=== PATIENT | male | born 1995 | race Caucasian/White ===

== ENCOUNTER → 2017-03-24 | Outpatient (CLI) | payer BC, OTHER ==
[~2017-03-24] MED LIST: ABL/5 PO; CETI10TA84 PO; GLYC1TAB18 PO; MELA3CAP PO; PRLSR20 PO
--- NOTE | 2017-03-24 16:47 | DIAGNOSTIC IMAGING REPORT ---
ABDOMEN AND PELVIS CT WITHOUT CONTRAST CT DOSE: 1542.86 mGy.cm HISTORY: N50.819 Testicular painR30.0 AreryjpU81.89 Testicular swelling TECHNIQUE: Multiaxial CT images of the abdomen and pelvis were performed without contrast. A dose lowering technique was utilized adhering to the principles of ALARA. COMPARISON STUDY: None. FINDINGS: The lung bases are clear. The unenhanced liver, spleen, gallbladder, adrenal glands, pancreas, and kidneys are unremarkable. The bladder is within normal limits. Suboptimal evaluation for bowel pathology due to the lack of intravenous and oral contrast. However, there is no definite bowel wall thickening or obstruction. Subcentimeter retroperitoneal lymph nodes do not meet CT criteria for pathologic involvement. Normal appendix. There are few enlarged ileocolic lymph nodes. Dominant ileocolic lymph node on image 242 measures 2.2 x 1.1 cm. There appears be minimal inflammatory change at the base of the penis. However, this is only partially visualized on this study IMPRESSION: 1. No bowel wall thickening or obstruction. 2. No renal or ureteral stones. No hydronephrosis. 3. Mild ileocolic lymphadenopathy which is nonspecific. 3 month abdomen and pelvis CT follow up is recommended to ensure stability/resolution. A neoplastic process could have a similar appearance but is considered less likely. 4. There appears be minimal inflammatory change at the base of the penis. However, this is only partially visualized on this study. Electronically signed by: Santo Franco M.D. 03/24/2017 4:46 PM Dictated Date/Time: 03/24/2017 4:35 PM
--- NOTE | 2017-03-24 17:00 | DIAGNOSTIC IMAGING REPORT ---
TESTICULAR ULTRASOUND HISTORY: N50.819 Testicular painN50.89 Testicular swelling COMPARISON: Abdomen and pelvis CT 03/24/2017. FINDINGS: Right testis: 4.9 cm. There are no intratesticular masses. Normal color flow. Trace slightly complex hydrocele demonstrating internal echoes. The epididymis is unremarkable. Left testis: 4.7 cm. There are no intratesticular masses. Normal color flow. Large hydrocele. The epididymis is unremarkable. Mild scrotal wall thickening. IMPRESSION: 1. Normal bilateral testes. 2. Large left hydrocele. 3. Trace slightly complex right hydrocele. 4. Mild scrotal wall thickening. Electronically signed by: Snato Franco M.D. 03/24/2017 4:58 PM Dictated Date/Time: 03/24/2017 4:57 PM
== END | disposition home or self-care (01) ==
LOC: C.CTS 15:33
PROVIDERS: ATTEND Urology
DX: N50.89 Other specified disorders of the male genital organs (principal); N50.819 Testicular pain, unspecified; R30.0 Dysuria

== ENCOUNTER → 2017-06-19 | Outpatient (CLI) | payer BC, OTHER ==
[~2017-06-19] MED LIST changes: +GLC/500 PO; -GLYC1TAB18 PO; +GLYC2TAB16 PO; +IBUP-1449 PO; +LAMO25TA PO
[2017-06-19 19:29] LABS: BLOOD UREA NITROGEN 15 mg/dl (7-18); BUN/CREATININE RATIO 14.3 (10-20); CREATININE 1.03 mg/dl (0.60-1.40)
== END | disposition home or self-care (01) ==
LOC: C.LAB 16:17
PROVIDERS: ATTEND Urology
DX: N50.819 Testicular pain, unspecified (principal)

== ENCOUNTER → 2017-06-23 | Outpatient (CLI) | payer BC ==
[~2017-06-23] MED LIST changes: +OPTIRAY 320 IV PRN
--- NOTE | 2017-06-23 08:48 | DIAGNOSTIC IMAGING REPORT ---
CT ABD/PELVIS IV CONTRAST ONLY CLINICAL HISTORY: N50.819 Testicular painR30.0 XynqdreF00.8 Dysfunctional voiding COMPARISON STUDY: 03/24/2017 TECHNIQUE: Following the IV administration of 93 mL of Optiray-320, CT scan of the abdomen and pelvis was performed from the lung bases to the proximal femurs. Images are reviewed in the axial, sagittal, and coronal planes. IV contrast was administered without complication. A dose lowering technique was utilized adhering to the principles of ALARA. CT DOSE: 1846.55 mGy.cm FINDINGS: Lower chest: The heart is normal in size and configuration, without pericardial effusion. The lung bases and pleural spaces are clear. Liver: The contrast-enhanced liver is normal in size, contour, and attenuation. There is no intrahepatic biliary ductal dilatation. The hepatic veins and portal veins are patent. Gallbladder: Unremarkable. Spleen: Normal in size and attenuation. Pancreas: Unremarkable. Adrenal glands: Unremarkable. Kidneys: There is symmetric renal cortical enhancement. The kidneys are normal in size without hydronephrosis. Bowel: There are no transition zones indicate bowel obstruction. There is no evidence of acute diverticulitis. There are no findings to indicate acute appendicitis. Peritoneum: There is no intraperitoneal free air or abdominal ascites. Vasculature: The abdominal aorta is normal in course and caliber. Adenopathy: There are persistent borderline enlarged pericaval lymph nodes. There are persistent mildly enlarged ileocolic lymph nodes. The largest measures 21 mm in long axis. Pelvic viscera: There are bilateral hydroceles. There are partially visualized presumed inflammatory changes surrounding the screw in the distal penis Skeletal structures: No destructive osseous lesions are seen. IMPRESSION: 1. No evidence of bowel obstruction. No evidence of free air. No acute inflammatory changes within the bowel 2. Bilateral scrotal hydroceles. Partially visualized presumed inflammatory changes surrounding the scrotum and distal penis 3. Persistent mild ileocolic lymphadenopathy. Stable borderline enlarged aortocaval lymph nodes. Electronically signed by: Dave Cowan M.D. 06/23/2017 8:47 AM Dictated Date/Time: 06/23/2017 8:39 AM
== END | disposition home or self-care (01) ==
LOC: C.CTS 07:48
PROVIDERS: ATTEND Urology
DX: N39.8 Other specified disorders of urinary system (principal); N50.89 Other specified disorders of the male genital organs; N50.819 Testicular pain, unspecified; R59.1 Generalized enlarged lymph nodes; R30.0 Dysuria

== ENCOUNTER → 2017-06-25 | Outpatient (CLI) | payer BC, OTHER ==
[~2017-06-25] MED LIST changes: -OPTIRAY 320 IV PRN
[2017-06-25 17:03] LABS: BLOOD UREA NITROGEN 15 mg/dl (7-18); BUN/CREATININE RATIO 15.6 (10-20); CREATININE 0.98 mg/dl (0.60-1.40)
== END | disposition home or self-care (01) ==
LOC: C.LAB 16:06
PROVIDERS: ATTEND Urology
DX: N50.819 Testicular pain, unspecified (principal)

== ENCOUNTER 2017-07-08 09:10 | Day surgery (SDC) | payer BC, OTHER ==
[2017-06-23 09:21] VITALS: BMI 38.0
--- NOTE | 2017-06-23 10:01 | PAT Medication Instructions ---
Service Date Jun 23, 2017. Current Home Medication List Aripiprazole (Abilify), 5 MG PO HS Cetirizine (Zyrtec), 10 MG PO HS Glycopyrrolate (Glycopyrrolate), 2 MG PO BID Ibuprofen Tab (Motrin), 400 MG PO TID PRN for Pain Lamotrigine (Lamictal), 25 MG PO BID Melatonin (Melatonin), 6 MG PO HS Metformin Hcl (Glucophage), 500 MG PO QAM Omeprazole (Prilosec), 20 MG PO QPM Medication Instructions For Your Scheduled Surgery - Hold the following medications 1 week prior to surgery: Ibuprofen Tab (Motrin), 400 MG PO TID PRN for Pain - Hold the following medications 48 hours prior to surgery: Metformin Hcl (Glucophage), 500 MG PO QAM - Take the following medications the morning of surgery with a sip of water: Lamotrigine (Lamictal), 25 MG PO BID Glycopyrrolate (Glycopyrrolate), 2 MG PO BID - Take the following medications as scheduled the night before surgery: Omeprazole (Prilosec), 20 MG PO QPM Melatonin (Melatonin), 6 MG PO HS Lamotrigine (Lamictal), 25 MG PO BID Aripiprazole (Abilify), 5 MG PO HS Cetirizine (Zyrtec), 10 MG PO HS If you have any questions please call us at [phone] or [phone] or [phone]
--- NOTE | 2017-06-23 10:45 | DIAGNOSTIC IMAGING REPORT ---
CHEST 2 VIEWS ROUTINE CLINICAL HISTORY: Preoperative chest COMPARISON STUDY: 06/21/2013 FINDINGS: The cardiac and mediastinal contours are normal. There is no evidence of focal pulmonary consolidation. There is no evidence of failure. No pleural effusions are visualized.[ There is an azygos fissure IMPRESSION: No active disease in the chest. Electronically signed by: Dave Cowan M.D. 06/23/2017 10:44 AM Dictated Date/Time: 06/23/2017 10:43 AM
[2017-06-23 11:23] LABS: BASO % 0.6 %; BASO ABS # 0.04 K/uL (0-0.2); EOS % 3.9 %; EOS ABS # 0.26 K/uL (0-0.5); HEMATOCRIT 47.2 % (42-52); HEMOGLOBIN 16.1 g/dL (14.0-18.0); IG# 0.01 K/uL (0.00-0.02); LYMPH % 27.9 %; LYMPH ABS # 1.87 K/uL (1.2-3.4); MEAN CELL VOLUME 83.5 fL (80-100); MEAN CORPUSCULAR HEMOGLOBIN 28.5 pg (25-34); MEAN CORPUSCULAR HGB CONC 34.1 g/dl (32-36); MONO % 11.2 %; MONO ABS # 0.75 K/uL (0.11-0.59); NEUT % 56.3 %; NEUT ABS # 3.77 K/uL (1.4-6.5); PLATELET COUNT 160 K/uL (130-400); RED CELL DISTRIBUTION WIDTH CV 13.9 % (11.5-14.5); RED CELL DISTRIBUTION WIDTH SD 42.1 fL (36.4-46.3)
[2017-06-23 11:32] LABS: CREATININE 0.96 mg/dl (0.60-1.40); POTASSIUM 4.7 mmol/L (3.5-5.1)
[~2017-07-08] VITALS: Ht 180.3 cm; Wt 125.2 kg
[~2017-07-08 09:10] MED LIST changes: +CEFAZOLIN 3000MG IV PUSH 15 ML IV SCH; +LACTATED RINGER'S 1000ML 1,000 ML IV SCH
[2017-07-08 09:34] VITALS: BP 136/74; PULSE 88; TEMP 36.6; O2SAT 98; Ht 180.3 cm; Wt 125.2 kg
[2017-07-08] MEDS ORDERED: FENTANYL CITRATE INJ 50 MCG/1 ML 2 ML VIAL ONE (10:12)
[2017-07-08] MEDS ORDERED: BACITRACIN OINT 15 GM TUBE ONE ×2 (10:13→12:21)
[2017-07-08] MEDS ORDERED: BUPIVACAINE 0.5 % 5 MG/1 ML MPF 30ML VIAL ONE (10:13)
--- NOTE | 2017-07-08 10:34 | History & Physical Bridge Note ---
H&P Re-Evaluation Bridge Note: I have examined the patient, reviewed the History & Physical and in the interval since the performance of the History & Physical I have noted the following changes of clinical significance: No changes noted
[2017-07-08] MEDS ORDERED: POLY335019 PO (10:47)
[2017-07-08] MEDS ORDERED: SULF800T23 PO (10:47)
[2017-07-08] MEDS ORDERED: OXYC7.5T65 PO (10:47)
[2017-07-08] MEDS ORDERED: CLOT-51 TOP (10:47)
--- NOTE | 2017-07-08 10:50 | Discharge Instructions ---
Discharge Instructions Date of Service Jul 08, 2017. Admission Reason for Admission: Hydrocele Discharge Discharge Diagnosis / Problem: Bilateral Hydrocele Discharge Goals Goal(s): Decrease discomfort, Improve function Activity Recommendations Activity Limitations: resume your previous activity Lifting Limitations: no more than 10 pounds, gradually increase as tolerated, until after follow-up appointment Exercise/Sports Limitations: rest today, gradually increase as tolerated, until after follow-up appointment Shower/Bathe: tomorrow . Instructions / Follow-Up Instructions / Follow-Up Okay to shower tomorrow and wash 2-3 x daily with warm soapy water. No scrubbing. No baths or soaking or hot tubs. Okay to apply ice every 20 mins for 20 mins on and off to area. Okay to restart NSAIDs in 1-2 days as needed for pain. Okay to use tylenol if not taking percocet for pain. Keep elevated when ambulating and monitor for trauam. Utilize scrotal support underwear. Elevate when laying flat or sitting down. Follow up in 1-2 weeks for drain removal and wound check. Current Hospital Diet Patient's current hospital diet: Reg Discharge Diet Recommended Diet: Regular Diet Procedures Procedures Performed: Bilateral Hydrocele Pending Studies Studies pending at discharge: no Medical Emergencies . Who to Call and When: Medical Emergencies: If at any time you feel your situation is an emergency, please call 911 immediately. . Non-Emergent Contact Non-Emergency issues call your: Primary Care Provider, Urologist Call Non-Emergent contact if: you have a fever, temperature is above 101, temperature is above 101.5, your pain is not controlled, your pain is worsening , your pain is unusual for you, wound has increased drainage, wound has increased redness, wound has increased pain . . "Provider Documentation" section prepared by Ike Sotomayor,. . VTE Core Measure Inpt VTE Proph given/why not?: SCD's
[2017-07-08] MEDS ORDERED: OXYCODONE/ACETAMINOPHEN 7.5-325 TAB PO PRN (11:00)
[2017-07-08] MEDS ORDERED: ONDANSETRON INJ 2 MG/ML 2 ML VIAL IV PRN (11:15)
[2017-07-08] MEDS ORDERED: FENTANYL CITRATE INJ 50 MCG/1 ML 2 ML VIAL IV PRN (11:15)
[2017-07-08] MEDS ORDERED: ATROPINE SULFATE 0.1 MG/ML 5ML SYR IV PRN (11:15)
[2017-07-08] MEDS ORDERED: ROCURONIUM BROMIDE 10 MG/ML 5 ML VIAL IV ONE (12:02)
[2017-07-08] MEDS ORDERED: ONDANSETRON INJ 2 MG/ML 2 ML VIAL ONE (12:02)
[2017-07-08] MEDS ORDERED: PROPOFOL IV EMULSION 10 MG/ML 20 ML VIAL IV ONE (12:02)
[2017-07-08] MEDS ORDERED: GLYCOPYRROLATE INJ 0.2 MG/ML VIAL ONE ×2 (12:02→12:20)
[2017-07-08] MEDS ORDERED: LIDOCAINE HCL 2% 2 ML VIAL (20MG/ML) ONE (12:02)
[2017-07-08] MEDS ORDERED: NEOSTIGMINE METHYLSULFATE 5 MG/5 ML SYR ONE (12:02)
--- NOTE | 2017-07-08 12:55 | [facility] Operative Report ---
Operative Report Operative Date Jul 08, 2017. Pre-Operative Diagnosis Bilateral Hydrocele Post-Operative Diagnosis Same Procedure(s) Performed Bilateral Hydrocelectomy Surgeon Bran Fruit Room Hand Surgeon(s) None Estimated Blood Loss 15cc Findings Bilateral hydrocele with large left hydrocele. Specimens bilateral hydrocele sacs Drains Left sreedhar drain Anesthesia Genera Complication(s) None Disposition Recovery Room / PACU Indications Large bilateral hydrocele with considerable bother and issues with urination. Risks and benefits discussed at length with patient' mother. Agreeable and consented. Description of Procedure Patient was consented and brought back to the operating room. Patient was placed under anesthesia in the supine position. Patient was prepped and draped in the regular sterile fashion. A time out was completed. The scrotum was marked at the midline raphe and the area anesthetized. The skin was incised and first the left hemiscrotum was entered. The testicle was delivered by dissecting into the subcutaneous tissues. With the testicle exposed, the hydrocele was opened and irrigated and excess tissue was removed and sent for analysis. Of note, the left hydrocele sac was considerably thickened. All major landmarks and areas of the testicle and cord were identified. The scrotum was irrigated. The sac was oversewn behind the testicle and cord. The area was once again irrigated. All bleeding was controlled with cautery. The testicle was then delivered back into the hemiscrotum. In the dependant portion of the scrotum, the skin was opened and a Chrissie was used to place a sreedhar drain on the left. This was sutured into position. The attention was then taken to the right hemiscrotum which was opened and the testicle delivered. The hydrocele was opened, irrigated, the excess removed and sent, the edges were oversewn, and the area was inspected. Again, all major landmarks were identified prior to opening the sac. The testicle was placed into the hemiscrotum. Both sides were again inspected and all bleeding controlled. A running vicryl suture was used to close the subcutaneous tissues and an intermittent horizontal mattress suture was used to close the skin. Cord blocks were completed with local anesthetic prior to completion of the case and closure. The patient was cleaned, aroused from anesthesia, and transferred to the pacu in stable condition having tolerated the procedure well with no complications. I was present and participated in all aspects of the procedure. I attest to the content of the Intraoperative Record and any orders documented therein. Any exceptions are noted below.
--- NOTE | 2017-07-08 13:08 | Anesthesiology Progress Note ---
Anesthesia Post Op Note Date & Time Jul 08, 2017 at 13:07 Vital Signs Pain Intensity: 0 Vital Signs Past 12 Hours Date Time Temp Pulse Resp B/P (MAP) Pulse Ox O2 Delivery O2 Flow Rate FiO2 07/08/17 13:00 73 16 127/91 97 Room Air 07/08/17 12:50 79 16 154/91 97 Oxymask 10 07/08/17 12:40 36.2 86 16 142/75 98 Oxymask 10 07/08/17 09:34 36.6 88 20 136/74 (94) 98 Room Air Notes Mental Status: alert / awake / arousable, participated in evaluation Pt Amnestic to Procedure: Yes Nausea / Vomiting: adequately controlled Pain: adequately controlled Airway Patency, RR, SpO2: stable & adequate BP & HR: stable & adequate Hydration State: stable & adequate Anesthetic Complications: no major complications apparent
[2017-07-08 13:15] VITALS: BP 131/87; PULSE 74; TEMP 36.4; O2SAT 98
[2017-07-08 13:45] VITALS: BP 154/94; PULSE 92; O2SAT 97
[2017-07-08 14:25] VITALS: BP 144/84; PULSE 77; TEMP 36.7; O2SAT 96
[2017-07-08 15:20] VITALS: BP 136/72; PULSE 93; TEMP 36.8; O2SAT 97
== END 2017-07-08 16:12 | disposition home or self-care (01) ==
LOC: C.ACU 09:10
PROVIDERS: ATTEND Urology
DX: N43.3 Hydrocele, unspecified (principal); F84.0 Autistic disorder; F90.9 Attention-deficit hyperactivity disorder, unspecified type; Z82.49 Family history of ischemic heart disease and other diseases of the circulatory system

== ENCOUNTER 2023-11-15 13:58 | Inpatient (IN) ==
[2023-11-15] MEDS: ATROPINE SULFATE 0.1 MG/ML 10ML SYR IV STA ×2 (14:52→15:00)
[2023-11-15] MEDS: ATROPINE SULFATE 0.1 MG/ML 5ML SYR IV ONE ×2 (14:52→15:00)
[2023-11-15] MEDS: ASPIRIN 81 MG CHEW PO STA (15:00)
[2023-11-15 15:17] LABS: Base Excess VBG 3.4 mEq/L; HCO3 VBG 30 mmol/L; Oxygen Saturation VBG < 60.0 %; PCO2 VBG 55 mmHg (38-50); PO2 VBG 20 mmHg; pH VBG 7.35 (7.36-7.41)
[2023-11-15 15:17] LABS: Basophils # (auto) 0.04 K/uL (0.00-0.20); Basophils % (auto) 0.5 %; Eosinophils # (auto) 0.22 K/uL (0.00-0.50); Eosinophils % (auto) 2.7 %; Hematocrit (blood only) 46.7 % (42.0-52.0); Hemoglobin 15.4 g/dl (14.0-18.0); Immature Granulocytes # (auto) 0.03 K/uL (0.01-0.20); Immature Granulocytes % (auto) 0.4 %; Lymphocytes # (auto) 2.47 K/uL (1.20-3.40); Lymphocytes % (auto) 29.9 %; Mean Corpuscular Hemoglobin 26.5 pg (25.0-34.0); Mean Corpuscular Volume 80.2 fL (80.0-100.0); Mean Platelet Volume 11.7 fL (9.4-12.4); Monocytes # (auto) 0.83 K/uL (0.11-0.59); Neutrophils # (auto) 4.68 K/uL (1.40-6.50); Neutrophils % (auto) 56.5 %; Platelet Count 173 K/uL (130-400); RDW Coefficient of Variation 14.6 % (11.5-14.5); RDW Standard Deviation 41.9 fL (36.4-46.3); Red Blood Count 5.82 M/uL (4.70-6.10); White Blood Count 8.27 K/ul (4.8-10.8)
--- NOTE | 2023-11-15 15:19 | XRay Report ---
SINGLE VIEW CHEST CLINICAL HISTORY: Atypical chest pain FINDINGS: An AP, portable, upright chest radiograph is compared to study dated 12/13/2020. The cardiome diastinal silhouette is unremarkable. There is prominence of the pulmonary vasculature and coarsening of interstitial. An accessory azygos fissure is incidentally noted. There is mild bibasilar atelecta sis. The lungs and pleural spaces are otherwise clear. No pneumothorax is seen. The bony thorax is gr ossly intact. IMPRESSION: 1. There is prominence of the pulmonary vasculature and coarsening of the interstitium. This may be a rtifactual. Correlate clinically for evidence of fluid overload/mild congestive change versus a mild pneumonitis. 2. No airspace consolidation or pleural effusion is identified. ACT 112: Negative or not required by law. Electronically signed by: Harris Puga M.D. 11/15/2023 3:17 PM
[2023-11-15 15:28] LABS: BUN Creatinine Ratio 14.3 (10-20); Calcium 9.5 mg/dl (8.6-10.3); Creatinine Clr Calc Pharmacy 142.4 ml/min; Est GFR (African American) 111.4 ml/min; Est GFR (Non-African American) 96.1 ml/min; Magnesium 2.1 mg/dl (1.7-2.4); Partial Thromboplastin Ratio 1.2; Partial Thromboplastin Time 31 Seconds (21-31); Potassium 4.2 mmol/L (3.5-5.1); Prothrombin Time 11.1 Seconds (9.0-12.0)
[2023-11-15 15:34] LABS: Troponin I High Sensitivity 3.2 pg/ml (0-20)
--- NOTE | 2023-11-15 15:40 | CT Scan Report ---
CT SCAN OF THE BRAIN WITHOUT IV CONTRAST CLINICAL HISTORY: Change in mental status. COMPARISON STUDY: CT of the brain dated 06/21/2013. MRI of the brain dated 07/05/2013 TECHNIQUE: Unenhanced axial CT scan of the brain is performed from the vertex to the skull base. A d ose lowering technique was utilized adhering to the principles of ALARA. CT DOSE: 766.29 mGy.cm FINDINGS: Brain parenchyma: The brain parenchyma is normal in appearance. There is no hemorrhage, mass effect, or evidence of acute territorial ischemia by CT criteria. A 7 mm focus of CSF attenuation in the righ t parietal white matter on image #19 has been present dating back to 2012 and is of doubtful signific ance, possibly representing a perivascular space. Perrin-white matter differentiation is preserved. No extra-axial fluid collection is seen. Ventricles, sulci, cisterns: Normal in configuration. 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 Cavum septum pellu cidum is incidentally noted.. Intracranial vasculature: The visualized intracranial vasculature at the skull base is normal in appe arance. Calvarium: Unremarkable. Sinuses and mastoids: The visualized paranasal sinuses are clear. The mastoid air cells are well pneu matized. Orbits: The bony orbits are grossly intact. IMPRESSION: No acute intracranial abnormality. ACT 112: Negative or not required by law. Electronically signed by: Harris Puga M.D. 11/15/2023 3:38 PM
--- NOTE | 2023-11-15 16:29 | History & Physical Report ---
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 Unclear history of this but possible alternative explanation of his symptoms. Monitor for recurrence. 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 He reports just "feeling off" when he went to work today. Unable to really expand on this feeling. Careworker mentioned the patient was "nodding off". No fall or trauma. He denies any chest pain, dizziness, shortness of breath, headache, neck stiffness, fever, chills, respiratory, gastrointestinal or urinary symptoms. He denies missing any medications. In the ER he was noticed to have a heart rate in the 30s and was given a total of 1 mg of atropine and he is feeling improved following this. Allergies Allergy/AdvReac Type Severity Reaction Status Date / Time azithromycin Allergy Severe severe Verified 12/11/22 12:55 [From Zithromax Z-Ramsey] hives - Anaphylaxis cashew nut Allergy Severe all Verified 12/11/22 12:55 nuts Anaphylaxis peanut Allergy Severe ANAPHYLAXIS Verified 12/11/22 12:55 sesame seed Allergy Severe Anaphylaxis Verified 12/11/22 12:55 egg Allergy Intermediate Hives Verified 12/11/22 12:55 midazolam [From Versed] Allergy Intermediate respiratory Verified 12/11/22 12:55 failure, syncope, weakness orange Allergy Intermediate EOSINOPHILLIC Verified 12/11/22 12:55 ESOPHAGITIS peas Allergy Intermediate EOSINOPHILLIC Verified 11/15/23 19:53 ESOPHAGITIS Home Medications Medication Instructions Recorded Confirmed Type cetirizine 10 mg tablet 10 mg PO HS 02/17/19 11/15/23 History glycopyrrolate 2 mg tablet 2 mg PO TID 02/17/19 11/15/23 History epinephrine 0.3 mg/0.3 mL 0.3 mg IM Q3H PRN ALLERGY REACTION 06/01/19 11/15/23 History injection, auto-injector (EpiPen) metformin 500 mg tablet 500 mg PO DAILY 12/11/22 11/15/23 History aripiprazole 10 mg tablet 10 mg PO HS 11/15/23 11/15/23 History lamotrigine 25 mg chewable 25 mg PO BID 11/15/23 11/15/23 History dispersible tablet melatonin 5 mg disintegrating 10 mg PO HS 11/15/23 11/15/23 History tablet omeprazole 20 mg capsule,delayed 20 mg PO BID 11/15/23 11/15/23 History release Past Med/Surg History Medical History Cerebral palsy Minimal- mild issue with feet- wears insert. 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 + SEIZURE (UNABLE TO CONFIRM EPISODES/EEG'S NORMAL) LAST EVENT OVER 4 YEARS AGO (~2017) Environmental allergies Asthma HAS NOT USED RESCUE INHALER IN YEARS Eosinophilic esophagitis Follows with GI - Dr. Case Surgical History H/O vascular surgery Bilateral Lower Extremity Greater Saphenous Vein Radiofrequency Ablation History of anesthesia reaction 2009 EGD- DONE AT [facility]. Per records- pt discharged home- later became pale/cyanotic, SOB, shakey, dizzy. Per ER report- differential diagnosis includes asthma, pulmonary edema, hypothalamic dysregulation, aspiration, allergic reaction Per patient's mother- as long as Versed NOT used - pt tolerates well. History of hydrocelectomy RT/LEFT History of esophagogastroduodenoscopy (EGD) multiple History of tonsillectomy and adenoidectomy History of myringotomy X 2 Family History Father Hypertension Family history of reaction to anesthesia versed--> homocidal thoughts Grandfather (Maternal) Melanoma Grandmother (Maternal) Breast cancer Grandfather (Paternal) Prostate cancer Mother Family history of diabetes mellitus Brother Family history of reaction to anesthesia combative & aggressive with versed. Social History Smoking Status: Never smoker Second Hand Exposure: No; Do You Dip or Chew Tobacco: No; Hx Alcohol Use: No Hx Substance Use: No Preferred Language: Maltese Communication Ability: Effective Communication Ability Comment: 2ND GRADE LEVEL (DEVELOPMENTAL LEVEL) Psychology Technician Required: No Beliefs That Will Affect Care: None Current Living Situation: Personal Care Facility Current Living Situation Comment: Lives at [facility] Other Information That Helps Us Care for You: No Feels Safe at Home: Yes Safety Concerns: Feels Safe At This Time Assistive Devices: Glasses Review of Systems Review of Systems: All systems reviewed & are unremarkable except as noted in HPI & below Physical Exam Constitutional: no acute distress Eyes: PERRL, conjunctivae normal, anicteric sclerae ENMT: external ear and nose normal, oropharynx normal Respiratory: normal respiratory effort, lungs clear to auscultation Cardiovascular: RRR, no murmur, no edema HR decreased back to 40s after visiting rest room but patient was asymptomatic with this heart rate Gastrointestinal (Abdomen): normal bowel sounds, soft, nontender, no hepatosplenomegaly Musculoskeletal: no cyanosis or clubbing, extremities motor strength 5/5 Skin: no rashes, warm and dry Results & Data Results & Data Vital Signs (Past 12 Hours) Vital Signs Pulse Pulse Resp BP BP Pulse Ox O2 Del Method 11/15/23 15:31 18 165/125 H 100 11/15/23 15:19 41 L 11/15/23 14:52 40 L 19 114/70 99 11/15/23 14:49 45 L 18 100 Room Air 11/15/23 14:49 45 L 18 121/81 100 Room Air 11/15/23 14:49 100 Room Air 11/15/23 14:21 38 L 18 113/70 100 Room Air Laboratory Results Abnormal lab results 11/15/23 11/15/23 Range/Units 15:02 15:04 RDW Coeff of Chasidy 14.6 H (11.5-14.5) % [place] # (Auto) 0.83 H (0.11-0.59) K/uL VBG pH 7.35 L (7.36-7.41) VBG pCO2 55 H (38-50) mmHg Diagnostic Findings SINGLE VIEW CHEST CLINICAL HISTORY: Atypical chest pain FINDINGS: An AP, portable, upright chest radiograph is compared to study dated 12/13/2020. The cardiomediastinal silhouette is unremarkable. There is prominence of the pulmonary vasculature and coarsening of interstitial. An accessory azygos fissure is incidentally noted. There is mild bibasilar atelectasis. The lungs and pleural spaces are otherwise clear. No pneumothorax is seen. The bony thorax is grossly intact. IMPRESSION: 1. There is prominence of the pulmonary vasculature and coarsening of the interstitium. This may be artifactual. Correlate clinically for evidence of fluid overload/mild congestive change versus a mild pneumonitis. 2. No airspace consolidation or pleural effusion is identified. Medications Administered ER medications given: Atropine 0.5 mg IV Aspirin 324 mg p.o. Atropine 0.5 mg IV ECG Rate (beats per minute): 41 Rhythm: sinus bradycardia Findings: no acute ischemic change Comparison ECG Date: from (December 13, 2020) Change: the following changes noted (T wave inversion no longer present inferiorly) Code Status & VTE Plan Code Status Full PG Care Time/CCT Total # of Minutes Spent Total Time Spent with Patient: Total time spent is greater than 50% in coordination of care (as documented) at patient's floor/unit and/or counseling patient: Coding Level of Care Code 19323 INT INP/OBS CARE MIN Diagnoses Sinus bradycardia R00.1 Dandy-Walker syndrome Q03.1 Eosinophilic esophagitis K20.0 History of seizure Z87.898
--- NOTE | 2023-11-15 18:56 | Emergency Department Note ---
History of Present Illness General Chief complaint: Lethargic Stated complaint: VERY TIRED/PULSE 42 Time Seen by Provider: 11/15/23 14:32 Source: patient and other (Caregiver ) History of Present Illness Provider complaint: Lethargy 28-year-old male with history of autism, Dandy-Walker syndrome, microcephaly, presents emergency department with caregiver for lethargy. Patient reports he has not been feeling well the last day. 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 He states he has been more tired. Caregiver reports no falls or traumas. No chest pain difficulty breathing. No nausea vomiting or diarrhea. No abdominal pain. No seizure-like activity. Caregiver states that the patient is new to her but he does not "seem like himself". Caregiver reports that while he has been with her today the patient kept "nodding off." No head trauma. Home Medications Medication Instructions Recorded Confirmed Type cetirizine 10 mg tablet 10 mg PO HS 02/17/19 11/15/23 History glycopyrrolate 2 mg tablet 2 mg PO TID 02/17/19 11/15/23 History epinephrine 0.3 mg/0.3 mL 0.3 mg IM Q3H PRN ALLERGY REACTION 06/01/19 11/15/23 History injection, auto-injector (EpiPen) metformin 500 mg tablet 500 mg PO DAILY 12/11/22 11/15/23 History aripiprazole 10 mg tablet 10 mg PO HS 11/15/23 11/15/23 History lamotrigine 25 mg chewable 25 mg PO BID 11/15/23 11/15/23 History dispersible tablet melatonin 5 mg disintegrating 10 mg PO HS 11/15/23 11/15/23 History tablet omeprazole 20 mg capsule,delayed 20 mg PO BID 11/15/23 11/15/23 History release Allergies Allergy/AdvReac Type Severity Reaction Status Date / Time azithromycin Allergy Severe severe Verified 12/11/22 12:55 [From Zithromax Z-Ramsey] hives - Anaphylaxis cashew nut Allergy Severe all Verified 12/11/22 12:55 nuts Anaphylaxis peanut Allergy Severe ANAPHYLAXIS Verified 12/11/22 12:55 sesame seed Allergy Severe Anaphylaxis Verified 12/11/22 12:55 egg Allergy Intermediate Hives Verified 12/11/22 12:55 midazolam [From Versed] Allergy Intermediate respiratory Verified 12/11/22 12:55 failure, syncope, weakness orange Allergy Intermediate EOSINOPHILLIC Verified 12/11/22 12:55 ESOPHAGITIS Pea Allergy Intermediate EOSINOPHILLIC Uncoded 12/11/22 12:55 ESOPHAGITIS Past Med/Surg History Medical History Cerebral palsy Minimal- mild issue with feet- wears insert. 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 + SEIZURE (UNABLE TO CONFIRM EPISODES/EEG'S NORMAL) LAST EVENT OVER 4 YEARS AGO (~2017) Environmental allergies Asthma HAS NOT USED RESCUE INHALER IN YEARS Eosinophilic esophagitis Follows with GI - Case Surgical History H/O vascular surgery Bilateral Lower Extremity Greater Saphenous Vein Radiofrequency Ablation History of anesthesia reaction 2009 EGD- DONE AT [facility]. Per records- pt discharged home- later became pale/cyanotic, SOB, shakey, dizzy. Per ER report- differential diagnosis includes asthma, pulmonary edema, hypothalamic dysregulation, aspiration, allergic reaction Per patient's mother- as long as Versed NOT used - pt tolerates well. History of hydrocelectomy RT/LEFT History of esophagogastroduodenoscopy (EGD) multiple History of tonsillectomy and adenoidectomy History of myringotomy X 2 Family History Father Hypertension Family history of reaction to anesthesia versed--> homocidal thoughts Grandfather (Maternal) Melanoma Grandmother (Maternal) Breast cancer Grandfather (Paternal) Prostate cancer Mother Family history of diabetes mellitus Brother Family history of reaction to anesthesia combative & aggressive with versed. 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 Laborer Required: No Beliefs That Will Affect Care: None Current Living Situation: Family Feels Safe at Home: Yes Assistive Devices: Glasses Physical Exam Vital Signs Vital Signs - 24 hr 11/15/23 14:21 11/15/23 14:49 11/15/23 14:49 Pulse Rate 38 L Pulse Rate [Apical] 45 L Pulse Rate from SpO2 Sensor Pulse Rhythm Respiratory Rate 18 18 Respiratory Effort / Characteristics Non-Labored Spontaneous Respiratory Depth Normal Blood Pressure 113/70 Blood Pressure [Left Arm] 121/81 Blood Pressure Mean 84 Blood Pressure Mean [Left Arm] 94 Blood Pressure Position Sitting Pulse Oximetry 100 100 100 Oxygen Delivery Method Room Air Room Air Room Air Sepsis Recent Fever Within 48 Hours No Sepsis New/Unexplained Change in Mental Status N/A Sepsis Action Taken by Nursing No Action Required 11/15/23 14:49 11/15/23 14:52 11/15/23 15:19 Pulse Rate 45 L 40 L 41 L Pulse Rate [Apical] Pulse Rate from SpO2 Sensor 41 L Pulse Rhythm Regular Respiratory Rate 18 19 Respiratory Effort / Characteristics Respiratory Depth Blood Pressure 114/70 Blood Pressure [Left Arm] Blood Pressure Mean 84 Blood Pressure Mean [Left Arm] Blood Pressure Position Pulse Oximetry 100 99 Oxygen Delivery Method Room Air Sepsis Recent Fever Within 48 Hours Sepsis New/Unexplained Change in Mental Status Sepsis Action Taken by Nursing 11/15/23 15:31 11/15/23 16:00 11/15/23 17:30 Pulse Rate 91 H 57 L Pulse Rate [Apical] Pulse Rate from SpO2 Sensor 107 H 91 H 57 L Pulse Rhythm Respiratory Rate 18 21 21 Respiratory Effort / Characteristics Respiratory Depth Blood Pressure 165/125 H 177/118 H 149/97 H Blood Pressure [Left Arm] Blood Pressure Mean 138 137 114 Blood Pressure Mean [Left Arm] Blood Pressure Position Pulse Oximetry 100 100 100 Oxygen Delivery Method Sepsis Recent Fever Within 48 Hours Sepsis New/Unexplained Change in Mental Status Sepsis Action Taken by Nursing 11/15/23 17:45 11/15/23 18:15 Pulse Rate 43 L 44 L Pulse Rate [Apical] Pulse Rate from SpO2 Sensor 44 L Pulse Rhythm Respiratory Rate 19 Respiratory Effort / Characteristics Respiratory Depth Blood Pressure 127/75 122/78 Blood Pressure [Left Arm] Blood Pressure Mean 92 92 Blood Pressure Mean [Left Arm] Blood Pressure Position Pulse Oximetry 99 100 Oxygen Delivery Method Sepsis Recent Fever Within 48 Hours Sepsis New/Unexplained Change in Mental Status Sepsis Action Taken by Nursing Physical Exam HENT: Exam performed. - Head: Normocephalic and atraumatic. EYES: Conjunctivae and EOM are normal. Pupils are equal, round, and reactive to light. Right eye exhibits no discharge. Left eye exhibits no discharge. No scleral icterus. NECK: Normal range of motion. Neck supple. No JVD present. No spinous process tenderness present. CV: Bradycardic rate, regular rhythm, normal heart sounds and intact distal pulses. There is no peripheral edema. Palpable radial pulses bue. PULM/CHEST: Effort normal and breath sounds normal. No respiratory distress. No stridor. He has no wheezes. He has no rales. ABD: The abdomen is soft. There is no tenderness. There is no rebound, no guarding MUSC/SKEL: Normal range of motion. There is no peripheral edema, tenderness or deformity. NEURO: Motor and sensation grossly intact. Course Course 1432: The patient was evaluated in room B8. A complete history and physical exam was performed Cardiac monitoring: An order was placed for continuous cardiac monitoring. The monitor shows a rate of 35 with sinus bradycardia rhythm interpreted by me Patient is bradycardic in a sinus rhythm. Patient blood pressure is fine. Patient reports no chest pain or difficulty breathing. Caregiver at bedside states that the patient is not acting himself or behaving like he usually does. Caregiver states that the facility that he is that administers his medication to him and he is not taking in excess of his home medications. Patient states he does not feel good. Given this and limited history secondary to his being on the autism spectrum, atropine 0.5 mg x 2 was administered to the patient. There was an improvement in the patient's heart rate and the caregiver at bedside stated that the patient seem more like himself after his heart rate improved. Blood pressure remained stable. 1502: Vital signs stable status post atropine administration. Caregiver at bedside states she did not alert the patient's mother as he did not want her to be alerted. I discussed it with them and informed them that I would be calling her.Called the patient's mother at [phone], spoke with Linda and she stated she would be up to see the patient DAIJA. 1555: Vital signs stable status post atropine. Mother is at bedside. Mother reports that the patient does have a history of autonomic dysfunction with his history of Dandy-Walker syndrome. She states that the patient appears more normal at this time. Labs and imaging are within normal limits at this time. Patient will be admitted to the [facility] team for further workup. Administered Medications Discontinued Medications Aspirin (Aspirin 81 Mg Chew) 324 mg PO NOW STA Stop: 11/15/23 14:46 Last Admin: 11/15/23 15:00 Dose: 324 mg Documented By: CINDY Atropine Sulfate (Atropine Sulfate 0.1 Mg/Ml 5ml Syr) Confirm Administered Dose 0.5 mg IV .STK-MED ONE Stop: 11/15/23 14:46 Last Admin: 11/15/23 14:52 Dose: 0.5 mg Documented By: CINDY Atropine Sulfate (Atropine Sulfate 0.1 Mg/Ml 10ml Syr) 0.5 mg IV NOW STA Stop: 11/15/23 14:46 Last Admin: 11/15/23 14:52 Dose: Not Given Documented By: CIDNY Atropine Sulfate (Atropine Sulfate 0.1 Mg/Ml 10ml Syr) 0.5 mg IV NOW STA Stop: 11/15/23 14:53 Last Admin: 11/15/23 15:00 Dose: 0.5 mg Documented By: CINDY Atropine Sulfate (Atropine Sulfate 0.1 Mg/Ml 5ml Syr) Confirm Administered Dose 0.5 mg IV .STK-MED ONE Stop: 11/15/23 14:54 Last Admin: 11/15/23 15:00 Dose: Not Given Documented By: CINDY Critical Care Time Critical Care Time: Yes Total Critical Care Time: 55 I have personally spent greater than 55 minutes of critical care time in the direct management of this patient. This includes bedside care, interpretation of diagnostic studies, and testing, discussion with consultants, patient, and family members, and other required patient management activities. This 55 minutes is in excess of all separately billable procedures. Medical Decision Making Laboratory Data Attestation: I reviewed the patient's lab results. 11/15/23 15:04 11/15/23 14:35 Lab Results 11/15/23 11/15/23 11/15/23 Range/Units 14:25 14:35 14:40 WBC (4.8-10.8) K/ul RBC (4.70-6.10) M/uL Hgb (14.0-18.0) g/dl Hct (42.0-52.0) % MCV (80.0-100.0) fL MCH (25.0-34.0) pg MCHC (32.0-36.0) g/dL RDW Std Deviation (36.4-46.3) fL RDW Coeff of Chasidy (11.5-14.5) % Plt Count (130-400) K/uL MPV (9.4-12.4) fL Immature Gran % (Auto) % Neut % (Auto) % Lymph % (Auto) % [place] % (Auto) % Eos % (Auto) % Baso % (Auto) % Neut # (Auto) (1.40-6.50) K/uL Lymph # (Auto) (1.20-3.40) K/uL [place] # (Auto) (0.11-0.59) K/uL Eos # (Auto) (0.00-0.50) K/uL Baso # (Auto) (0.00-0.20) K/uL Immature Gran # (Auto) (0.01-0.20) K/uL PT 11.1 (9.0-12.0) Seconds INR 1.0 (0.9-1.1) APTT 31 (21-31) Seconds PTT Ratio 1.2 VBG pH (7.36-7.41) VBG pCO2 (38-50) mmHg VBG pO2 mmHg VBG HCO3 mmol/L VBG O2 Saturation % VBG Base Excess mEq/L Sodium 138 (136-145) mmol/L Potassium 4.2 (3.5-5.1) mmol/L Chloride 105 (98-107) mmol/L Carbon Dioxide 28 (21-32) mmol/L Anion Gap 5 (3-11) BUN 15 (6-23) mg/dl Creatinine 1.05 (0.6-1.4) mg/dl Est Cr Clr Drug Dosing 142.4 ml/min Est GFR ( Amer) 111.4 ml/min Est GFR (Non-Af Amer) 96.1 ml/min BUN/Creatinine Ratio 14.3 (10-20) Glucose 96 (70-99(Fasting)) mg/dl POC Glucose 83 90 (70-99) mg/dl Calcium 9.5 (8.6-10.3) mg/dl Magnesium 2.1 (1.7-2.4) mg/dl Troponin I High Sens 3.2 (0-20) pg/ml Lipase 34 (11-82) U/L Anaplasma Smear Babesia Smear Lyme Disease Screen (Negative) 11/15/23 11/15/23 11/15/23 Range/Units 14:53 15:02 15:04 WBC 8.27 (4.8-10.8) K/ul RBC 5.82 (4.70-6.10) M/uL Hgb 15.4 (14.0-18.0) g/dl Hct 46.7 (42.0-52.0) % MCV 80.2 (80.0-100.0) fL MCH 26.5 (25.0-34.0) pg MCHC 33.0 (32.0-36.0) g/dL RDW Std Deviation 41.9 (36.4-46.3) fL RDW Coeff of Chasidy 14.6 H (11.5-14.5) % Plt Count 173 (130-400) K/uL MPV 11.7 (9.4-12.4) fL Immature Gran % (Auto) 0.4 % Neut % (Auto) 56.5 % Lymph % (Auto) 29.9 % [place] % (Auto) 10.0 % Eos % (Auto) 2.7 % Baso % (Auto) 0.5 % Neut # (Auto) 4.68 (1.40-6.50) K/uL Lymph # (Auto) 2.47 (1.20-3.40) K/uL [place] # (Auto) 0.83 H (0.11-0.59) K/uL Eos # (Auto) 0.22 (0.00-0.50) K/uL Baso # (Auto) 0.04 (0.00-0.20) K/uL Immature Gran # (Auto) 0.03 (0.01-0.20) K/uL PT (9.0-12.0) Seconds INR (0.9-1.1) APTT (21-31) Seconds PTT Ratio VBG pH 7.35 L (7.36-7.41) VBG pCO2 55 H (38-50) mmHg VBG pO2 20 mmHg VBG HCO3 30 mmol/L VBG O2 Saturation < 60.0 % VBG Base Excess 3.4 mEq/L Sodium (136-145) mmol/L Potassium (3.5-5.1) mmol/L Chloride (98-107) mmol/L Carbon Dioxide (21-32) mmol/L Anion Gap (3-11) BUN (6-23) mg/dl Creatinine (0.6-1.4) mg/dl Est Cr Clr Drug Dosing ml/min Est GFR ( Amer) ml/min Est GFR (Non-Af Amer) ml/min BUN/Creatinine Ratio (10-20) Glucose (70-99(Fasting)) mg/dl POC Glucose (70-99) mg/dl Calcium (8.6-10.3) mg/dl Magnesium (1.7-2.4) mg/dl Troponin I High Sens (0-20) pg/ml Lipase (11-82) U/L Anaplasma Smear See Comment Babesia Smear See Comment Lyme Disease Screen Negative (Negative) 11/15/23 Range/Units 16:54 WBC (4.8-10.8) K/ul RBC (4.70-6.10) M/uL Hgb (14.0-18.0) g/dl Hct (42.0-52.0) % MCV (80.0-100.0) fL MCH (25.0-34.0) pg MCHC (32.0-36.0) g/dL RDW Std Deviation (36.4-46.3) fL RDW Coeff of Chasidy (11.5-14.5) % Plt Count (130-400) K/uL MPV (9.4-12.4) fL Immature Gran % (Auto) % Neut % (Auto) % Lymph % (Auto) % [place] % (Auto) % Eos % (Auto) % Baso % (Auto) % Neut # (Auto) (1.40-6.50) K/uL Lymph # (Auto) (1.20-3.40) K/uL [place] # (Auto) (0.11-0.59) K/uL Eos # (Auto) (0.00-0.50) K/uL Baso # (Auto) (0.00-0.20) K/uL Immature Gran # (Auto) (0.01-0.20) K/uL PT (9.0-12.0) Seconds INR (0.9-1.1) APTT (21-31) Seconds PTT Ratio VBG pH (7.36-7.41) VBG pCO2 (38-50) mmHg VBG pO2 mmHg VBG HCO3 mmol/L VBG O2 Saturation % VBG Base Excess mEq/L Sodium (136-145) mmol/L Potassium (3.5-5.1) mmol/L Chloride (98-107) mmol/L Carbon Dioxide (21-32) mmol/L Anion Gap (3-11) BUN (6-23) mg/dl Creatinine (0.6-1.4) mg/dl Est Cr Clr Drug Dosing ml/min Est GFR ( Amer) ml/min Est GFR (Non-Af Amer) ml/min BUN/Creatinine Ratio (10-20) Glucose (70-99(Fasting)) mg/dl POC Glucose (70-99) mg/dl Calcium (8.6-10.3) mg/dl Magnesium (1.7-2.4) mg/dl Troponin I High Sens 4.0 (0-20) pg/ml Lipase (11-82) U/L Anaplasma Smear Babesia Smear Lyme Disease Screen (Negative) Imaging Data Attestation: I personally reviewed and interpreted this imaging study as follows: My Impression: Chest x-ray negative. Airway clear. No pneumothorax. No consolidation. No cardiomegaly or cephalization.. No free air under the diaphragm. No fractures of the skeletal structures. Radiologist's Impression: Chest X-Ray 11/15/23 14:45 SINGLE VIEW CHEST CLINICAL HISTORY: Atypical chest pain FINDINGS: An AP, portable, upright chest radiograph is compared to study dated 12/13/2020. The cardiomediastinal silhouette is unremarkable. There is prominence of the pulmonary vasculature and coarsening of interstitial. An accessory azygos fissure is incidentally noted. There is mild bibasilar atelectasis. The lungs and pleural spaces are otherwise clear. No pneumothorax is seen. The bony thorax is grossly intact. IMPRESSION: 1. There is prominence of the pulmonary vasculature and coarsening of the interstitium. This may be artifactual. Correlate clinically for evidence of fluid overload/mild congestive change versus a mild pneumonitis. 2. No airspace consolidation or pleural effusion is identified. ACT 112: Negative or not required by law. Electronically signed by: Harris Puga M.D. 11/15/2023 3:[address] 11/15/23 14:50 CT SCAN OF THE BRAIN WITHOUT IV CONTRAST CLINICAL HISTORY: Change in mental status. COMPARISON STUDY: CT of the brain dated 06/21/2013. MRI of the brain dated 07/05/2013 TECHNIQUE: Unenhanced axial CT scan of the brain is performed from the vertex to the skull base. A dose lowering technique was utilized adhering to the principles of ALARA. CT DOSE: 766.29 mGy.cm FINDINGS: Brain parenchyma: The brain parenchyma is normal in appearance. There is no hemorrhage, mass effect, or evidence of acute territorial ischemia by CT criteria. A 7 mm focus of CSF attenuation in the right parietal white matter on image #19 has been present dating back to 2012 and is of doubtful significance, possibly representing a perivascular space. Perrin-white matter differentiation is preserved. No extra-axial fluid collection is seen. Ventricles, sulci, cisterns: Normal in configuration. 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 Cavum septum pellucidum is incidentally noted.. Intracranial vasculature: The visualized intracranial vasculature at the skull base is normal in appearance. Calvarium: Unremarkable. Sinuses and mastoids: The visualized paranasal sinuses are clear. The mastoid air cells are well pneumatized. Orbits: The bony orbits are grossly intact. IMPRESSION: No acute intracranial abnormality. ACT 112: Negative or not required by law. Electronically signed by: Harris Puga M.D. 11/15/2023 3:38 PM ECG Data Attestation: I personally reviewed and interpreted this ECG as follows: Additional Comments: EKG #1 at 1431: Sinus bradycardia with rate of 41. DE QRS and QTc intervals within normal limits. No ST elevation or ST depression EKG #2 at 1459 status post atropine 0.5 mg x 2: sinus arrhythmia with rate of 55. DE QRS and QTc intervals within normal limits. No ST elevation or ST depression. EKG #3 at 1500: Sinus bradycardia with rate of 56. DE QS and QTc intervals are within normal limits. No ST elevation or ST depression MDM Narrative 1432: The patient was evaluated in room B8. A complete history and physical exam was performed Cardiac monitoring: An order was placed for continuous cardiac monitoring. The monitor shows a rate of 35 with sinus bradycardia rhythm interpreted by me Patient is bradycardic in a sinus rhythm. Patient blood pressure is fine. Patient reports no chest pain or difficulty breathing. Caregiver at bedside states that the patient is not acting himself or behaving like he usually does. Caregiver states that the facility that he is that administers his medication to him and he is not taking in excess of his home medications. Patient states he does not feel good. Given this and limited history secondary to his being on the autism spectrum, atropine 0.5 mg x 2 was administered to the patient. There was an improvement in the patient's heart rate and the caregiver at bedside stated that the patient seem more like himself after his heart rate improved. Blood pressure remained stable. 1502: Vital signs stable status post atropine administration. Caregiver at bedside states she did not alert the patient's mother as he did not want her to be alerted. I discussed it with them and informed them that I would be calling her.Called the patient's mother at [phone], spoke with Linda and she stated she would be up to see the patient DAIJA. 1555: Vital signs stable status post atropine. Mother is at bedside. Mother reports that the patient does have a history of autonomic dysfunction with his history of Dandy-Walker syndrome. She states that the patient appears more normal at this time. Labs and imaging are within normal limits at this time. Patient will be admitted to the [facility] team for further workup. Impression & Plan Symptomatic bradycardia Discharge Plan Visit Data Chief Complaint: Lethargic Stated Complaint: VERY TIRED/PULSE 42 ED Provider: [facility] Discharge Problem: Symptomatic bradycardia Patient Disposition: Admitted As Inpatient Discharge Instructions Interventions: ED Discharge Assessment Last Done: 11/15/23 18:33 Forms Stand Alone Forms: My [facility] Prescriptions Prescriptions: No Action glycopyrrolate 2 mg tablet 2 mg PO TID Rx Instructions: 0800,1200,2000 cetirizine 10 mg tablet 10 mg PO HS metformin 500 mg tablet 500 mg PO DAILY Rx Instructions: Daily at noon epinephrine [EpiPen] 0.3 mg/0.3 mL Auto-Injector 0.3 mg IM Q3H PRN (Reason: ALLERGY REACTION) aripiprazole 10 mg tablet 10 mg PO HS lamotrigine 25 mg tablet, chewable dispersible 25 mg PO BID Rx Instructions: omeprazole 20 mg capsule,delayed release(DR/EC) 20 mg PO BID Rx Instructions: melatonin 5 mg tablet,disintegrating 10 mg PO HS Rx Instructions: 1999 Referrals Referrals: Va Price DO [Primary Care Provider] -
[2023-11-15 19:20] LABS: Phosphorus 3.1 mg/dl (2.5-4.9)
[2023-11-15 19:36] LABS: Thyroid Stimulating Hormone 2.337 uIu/ml (0.300-4.500)
[2023-11-15] MEDS ORDERED: ATROPINE SULFATE 0.1 MG/ML 10ML SYR IV PRN (19:56)
[2023-11-15] MEDS: PANTOprazole 40 MG TAB PO SCH (20:15)
[2023-11-15] MEDS: ARIPiprazole 10 MG TAB PO SCH (20:15)
[2023-11-15] MEDS: lamoTRIgine 25 MG TAB PO SCH (20:15)
[2023-11-15] MEDS: MELATONIN 3 MG TAB PO SCH (20:16)
[2023-11-15] MEDS: CETIRIZINE HCL 10 MG TABLET PO SCH (20:16)
[2023-11-16] MEDS: GLYCOPYRROLATE 1 MG TAB PO SCH (01:02)
[2023-11-16 06:47] LABS: Basophils # (auto) 0.04 K/uL (0.00-0.20); Basophils % (auto) 0.4 %; Eosinophils # (auto) 0.24 K/uL (0.00-0.50); Eosinophils % (auto) 2.6 %; Hematocrit (blood only) 46.6 % (42.0-52.0); Hemoglobin 15.3 g/dl (14.0-18.0); Immature Granulocytes # (auto) 0.03 K/uL (0.01-0.20); Immature Granulocytes % (auto) 0.3 %; Lymphocytes % (auto) 26.3 %; Mean Corpuscular Hemoglobin 26.7 pg (25.0-34.0); Mean Corpuscular Hgb Conc 32.8 g/dL (32.0-36.0); Mean Corpuscular Volume 81.5 fL (80.0-100.0); Mean Platelet Volume 11.7 fL (9.4-12.4); Monocytes # (auto) 0.68 K/uL (0.11-0.59); Monocytes % (auto) 7.5 %; Neutrophils # (auto) 5.73 K/uL (1.40-6.50); Neutrophils % (auto) 62.9 %; Platelet Count 183 K/uL (130-400); RDW Coefficient of Variation 14.8 % (11.5-14.5); RDW Standard Deviation 43.6 fL (36.4-46.3); Red Blood Count 5.72 M/uL (4.70-6.10); White Blood Count 9.12 K/ul (4.8-10.8)
[2023-11-16 06:50] LABS: Albumin Globulin Ratio 1.6 (0.9-2); Albumin Level 4.2 gm/dl (3.4-5.0); BUN Creatinine Ratio 13.9 (10-20); Bilirubin,Total 0.9 mg/dl (0.2-1.0); Creatinine Clr Calc Pharmacy 144.4 ml/min; Est GFR (African American) 116.8 ml/min; Est GFR (Non-African American) 100.8 ml/min; Globulin 2.7 gm/dl (2.5-4.0); Potassium 4.4 mmol/L (3.5-5.1); Total Protein 6.9 gm/dl (6.0-8.3)
[2023-11-16 06:55] LABS: Troponin I High Sensitivity 7.6 pg/ml (0-20)
[2023-11-16] MEDS: metFORMIN HCL 500 MG TAB PO SCH (08:02)
--- NOTE | 2023-11-16 08:58 | Cardiology Consultation ---
Date of Consultation November 16, 2023 Assessment & Plan (1) Sinus bradycardia: Plan 1. Sinus bradycardia: He clearly has sinus bradycardia, in the emergency room it was unusually low and he did have symptoms at that time, but it is not clear that the symptoms were related to the bradycardia. If he did have symptomatic bradycardia then a pacemaker would be indicated as he is not on medications to cause bradycardia. At this point I would like to obtain little more information about his heart rate when he is not having symptoms, specifically I would recommend monitoring him for another day and then he should probably have an outpatient monitor of some type. We discussed 30-day monitoring versus an implantable loop recorder. 2. Symptomatic spells: Although his symptoms are somewhat vague making it difficult to determine what exactly he is feeling the episodes are quite sporadic, possibly occurring over several months, the cause of which has not been defined. It may be important to document his heart rate during these spells and compare it to his normal range of heart rates which we can get from monitoring when he is feeling well. This may require long-term monitoring such as with a loop recorder if we do not record symptomatic spells with a shorter term monitor. His mother has expressed interest in having him follow with [facility], therefore I will defer further evaluation to their service. History of Present Illness Reason for Consultation: Sinus bradycardia Attending Physician: Bhumi Whitman MD History of Present Illness This is a 28-year-old male who has a history of autism and Dandy-Walker syndrome who was brought into the emergency room by a caregiver for fatigue and lethargy. He describes "feeling off" and apparently a coworker mentioned that he was "nodding off". His symptoms are quite vague. He cannot provide a very coherent history due to his neurologic issues, his mother is with him at the time of my evaluation and was not with him during the time of these events. The caregiver is not here. From what she tells me he was not feeling well in his nonspecific way and he received atropine in the emergency room and apparently "perked up". He has these episodes from time to time, it is not clear how often, perhaps every several months, but his heart rate has not been evaluated during them. This is the first time that his mother is aware of that he has had a heart rate evaluation when he was not feeling well. He has not had cardiac monitoring so we do not know what his heart rate variation is when he is feeling well. According to his mother his heart rate has not been that low on standard office visits, generally in the 60s by her recollection. He may also have some type of autonomic difficulty although I do not believe it is ever been equated to changes in heart rate. His presenting electrocardiogram in the emergency room showed sinus bradycardia at 41 bpm with an incomplete right bundle branch block and no other abnormality. Another electrocardiogram done 25 minutes later showed sinus bradycardia 55 bpm with premature atrial beats or a sinus arrhythmia. In comparison there is an electrocardiogram from 2020 showing quite significant inferior T wave inversion, which is no longer present. That electrocardiogram suggests no change from 2017. This raises the possibility of pseudonormalization. Troponins x 2 however were normal in the emergency room. A chest x-ray suggests prominence of pulmonary vasculature but no cardiac abnormality. A head CT was without acute findings. An echocardiogram is pending. Allergies Allergy/AdvReac Type Severity Reaction Status Date / Time azithromycin Allergy Severe severe Verified 12/11/22 12:55 [From [employer] [facility]] hives - Anaphylaxis cashew nut Allergy Severe all Verified 12/11/22 12:55 nuts Anaphylaxis peanut Allergy Severe ANAPHYLAXIS Verified 12/11/22 12:55 sesame seed Allergy Severe Anaphylaxis Verified 12/11/22 12:55 egg Allergy Intermediate Hives Verified 12/11/22 12:55 midazolam [From Versed] Allergy Intermediate respiratory Verified 12/11/22 12:55 failure, syncope, weakness orange Allergy Intermediate EOSINOPHILLIC Verified 12/11/22 12:55 ESOPHAGITIS peas Allergy Intermediate EOSINOPHILLIC Verified 11/15/23 19:53 ESOPHAGITIS Home Medications Medication Instructions Recorded Confirmed Type cetirizine 10 mg tablet 10 mg PO HS 02/17/19 11/15/23 History glycopyrrolate 2 mg tablet 2 mg PO TID 02/17/19 11/15/23 History epinephrine 0.3 mg/0.3 mL 0.3 mg IM Q3H PRN ALLERGY REACTION 06/01/19 11/15/23 History injection, auto-injector (EpiPen) metformin 500 mg tablet 500 mg PO DAILY 12/11/22 11/15/23 History aripiprazole 10 mg tablet 10 mg PO HS 11/15/23 11/15/23 History lamotrigine 25 mg chewable 25 mg PO BID 11/15/23 11/15/23 History dispersible tablet melatonin 5 mg disintegrating 10 mg PO HS 11/15/23 11/15/23 History tablet omeprazole 20 mg capsule,delayed 20 mg PO BID 11/15/23 11/15/23 History release Patient History Medical History Cerebral palsy Minimal- mild issue with feet- wears insert. 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 + SEIZURE (UNABLE TO CONFIRM EPISODES/EEG'S NORMAL) LAST EVENT OVER 4 YEARS AGO (~2017) Environmental allergies Asthma HAS NOT USED RESCUE INHALER IN YEARS Eosinophilic esophagitis Follows with GI - DrDylon Case Surgical History H/O vascular surgery Bilateral Lower Extremity Greater Saphenous Vein Radiofrequency Ablation History of anesthesia reaction 2009 EGD- DONE AT [facility]. Per records- pt discharged home- later became pale/cyanotic, SOB, shakey, dizzy. Per ER report- differential diagnosis includes asthma, pulmonary edema, hypothalamic dysregulation, aspiration, allergic reaction Per patient's mother- as long as Versed NOT used - pt tolerates well. History of hydrocelectomy RT/LEFT History of esophagogastroduodenoscopy (EGD) multiple History of tonsillectomy and adenoidectomy History of myringotomy X 2 Family History Father Hypertension Family history of reaction to anesthesia versed--> homocidal thoughts Grandfather (Maternal) Melanoma Grandmother (Maternal) Breast cancer Grandfather (Paternal) Prostate cancer Mother Family history of diabetes mellitus Brother Family history of reaction to anesthesia combative & aggressive with versed. 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 He is resting in bed and is not very communicative but that is normal for him as I understand. HEENT: Unremarkable Neck: No jugular venous distention, carotid pulses are normal and equal bilaterally without bruits. Pulmonary: Clear to auscultation bilaterally. Cardiac: Regular rhythm with no murmur, gallop or rub. Abdomen: Soft, nontender with normal bowel sounds. Extremities: No edema. Distal pulses intact. Neurologic: No focal findings. Skin: No rash, ecchymoses or petechiae. Results & Data Vital Signs (Past 12 Hours) Vital Signs Temp Pulse Pulse Resp BP Pulse Ox O2 Del Method 11/16/23 07:34 36.9 C 53 L 20 131/76 96 Room Air 11/16/23 02:42 36.6 C 50 L 20 100/62 95 Room Air 11/15/23 23:00 36.3 C L 48 L 16 98/63 L 93 Room Air 11/15/23 22:00 43 L Laboratory Results Cardiac Enzymes 11/15/23 11/15/23 11/16/23 Range/Units 14:35 16:54 06:08 AST 24 (13-39) U/L Troponin I High Sens 3.2 4.0 7.6 (0-20) pg/ml Coagulation 11/15/23 Range/Units 14:35 PT 11.1 (9.0-12.0) Seconds APTT 31 (21-31) Seconds CBC 11/15/23 11/16/23 Range/Units 15:04 06:08 WBC 8.27 9.12 (4.8-10.8) K/ul RBC 5.82 5.72 (4.70-6.10) M/uL Hgb 15.4 15.3 (14.0-18.0) g/dl Hct 46.7 46.6 (42.0-52.0) % Plt Count 173 183 (130-400) K/uL Neut # (Auto) 4.68 5.73 (1.40-6.50) K/uL Lymph # (Auto) 2.47 2.40 (1.20-3.40) K/uL [place] # (Auto) 0.83 H 0.68 H (0.11-0.59) K/uL Eos # (Auto) 0.22 0.24 (0.00-0.50) K/uL Baso # (Auto) 0.04 0.04 (0.00-0.20) K/uL Comprehensive Metabolic Panel 11/15/23 11/16/23 Range/Units 14:35 06:08 Sodium 138 139 (136-145) mmol/L Potassium 4.2 4.4 (3.5-5.1) mmol/L Chloride 105 106 (98-107) mmol/L Carbon Dioxide 28 27 (21-32) mmol/L BUN 15 14 (6-23) mg/dl Creatinine 1.05 1.01 (0.6-1.4) mg/dl Glucose 96 104 H (70-99(Fasting)) mg/dl Calcium 9.5 9.0 (8.6-10.3) mg/dl AST 24 (13-39) U/L ALT 64 H (7-52) U/L Alkaline Phosphatase 82 (34-104) U/L Total Protein 6.9 (6.0-8.3) gm/dl Albumin 4.2 (3.4-5.0) gm/dl Intake and Output 11/15/23 11/16/23 11/16/23 22:59 06:59 14:59 Intake Total 240 / 480 240 / 480 Balance 240 / 480 240 / 480 Intake: Oral 240 / 480 240 / 480 Other: Weight 121.517 kg 121.5 kg Weight Measurement Method Built in [facility] Built in [facility] Diagnostic Findings Telemetry: In the emergency room he was observed to have heart rates in the 30s, those increased with atropine in the emergency room. He then had a heart rate around 40 or little higher overnight and that has been somewhat increased today. PG Care Time/CCT Total # of Minutes Spent Total Time Spent with Patient: Total time spent is greater than 50% in coordination of care (as documented) at patient's floor/unit and/or counseling patient: Coding Level of Care Code 40312 OFFICE CONSULT LVL Diagnoses Sinus bradycardia R00.1
--- NOTE | 2023-11-16 10:29 | Hospitalist Progress Note ---
Date of Service November 16, 2023 Assessment & Plan (1) Sinus bradycardia: (2) Eosinophilic esophagitis: (3) Symptomatic bradycardia: (4) Dandy-Walker syndrome: Plan #Sinus bradycardia Appears to be symptomatic from this, asymptomatic since admission possible component of autonomic dysfunction - not know to be a part of Dandy- Walker syndrome but reportedly he has had other autonomic dysfunction in the past Atropine 0.5mg IV PRN for HR < 30 or symptomatic with HR < 50 Troponin x2 negative TTE pending read Consult cardiology: -Consideration for pacemaker placement -Will need outpatient monitor -f/u with cardiology outpatient to discuss retirement management #Dandy-Walker syndrome Mother notes this is not an official diagnosis Does have microcephaly Have seen genetics at [facility] #Eosinophilic esophagitis -omeprazole at home Protonix while inpatient #History of seizure Continue lamotrigine. Unclear history of this but possible alternative explanation of his symptoms. Monitor for recurrence. Admission and Anticipated Discharge Date Admission Date: November 15, 2023 Supervising Physician Co-Signing Physician Notes Attending Physician Supervision Note: I independently interviewed and examined the patient and verified the wood history and physical, reviewed labs and image studies and agree with findings and care plan noted above. Sinus bradycardia - unclear if it is symptomatic since reported 'funny' feeling spells is not new. -HR dropped to 40s. Now running high 50s to 60s. -continue tele monitoring. -echo pending -cardio consult - will need outpatient tele monitoring. -continue to monitor for one more night in the hospital. anticipate home in am. Subjective Patient seen and evaluated at bedside this morning. Some episodes of bradyarrhythmia overnight, nothing sustained. Overall feeling well this AM. Cardiology to see pt today. Of note, pts father had early, sudden cardiac at the age of 36. Mother of patient reports that he had events similar to the patient prior to . Review of Systems Review of Systems: reviewed, per HPI Physical Exam Physical Exam: Constitutional: well-appearing, no acute distress HEENT: NCAT, no conjunctival injection CV: bradycardic, regular rhythm, no murmur appreciated, extremities well- perfused, no LE edema Resp: CTABL, no wheezes/rales/rhonchi appreciated, no increased work of breathing GI: soft, nondistended, nontender, BS normoactive MSK: no gross deformities appreciated Skin: warm, dry, no rash appreciated Neuro: alert, oriented, no focal neurologic deficit appreciated Results & Data Results & Data Vital Signs (Past 12 Hours) Vital Signs Temp Pulse Pulse Resp BP Pulse Ox O2 Del Method 11/16/23 09:34 64 11/16/23 07:34 36.9 C 53 L 20 131/76 96 Room Air 11/16/23 02:42 36.6 C 50 L 20 100/62 95 Room Air 11/15/23 23:00 36.3 C L 48 L 16 98/63 L 93 Room Air Resident Activity Tracking Resident Involvement: Resident Care Provided Care Provided: Adult Hospital Medicine
--- NOTE | 2023-11-16 15:20 | XCELERA ---
[id number]
--- NOTE | 2023-11-16 22:34 | Electrocardiogram Report ---
Test Reason : Blood Pressure : / mmHG Vent. Rate : 041 BPM Atrial Rate : 041 BPM P-R Int : 154 ms QRS Dur : 090 ms QT Int : 430 ms P-R-T Axes : 035 032 034 degrees QTc Int : 354 ms Marked sinus bradycardia Abnormal ECG When compared with ECG of 13-DEC-2020 10:31, Borderline criteria for Inferior infarct are no longer Present T wave inversion no longer evident in Inferior leads Nonspecific T wave abnormality no longer evident in Lateral leads Confirmed by Shakir Pyle ([id number]) on 11/16/2023 10:33:36 PM Referred By: REFERRED SELF Confirmed By:Shakir Pyle
--- NOTE | 2023-11-16 22:35 | Electrocardiogram Report ---
Test Reason : Blood Pressure : / mmHG Vent. Rate : 055 BPM Atrial Rate : 055 BPM P-R Int : 144 ms QRS Dur : 090 ms QT Int : 418 ms P-R-T Axes : 050 034 046 degrees QTc Int : 399 ms Sinus bradycardia with sinus arrhythmia Otherwise normal ECG When compared with ECG of 15-NOV-2023 14:31, (unconfirmed) No significant change was found Confirmed by Shakir Pyle ([id number]) on 11/16/2023 10:34:47 PM Referred By: REFERRED SELF Confirmed By:Shakir Pyle
--- OUTSIDE RECORDS SUMMARY | 2023-11-17 02:08 | External Medical Summary | Continuity of Care Document ---
Author Name Unknown Organization [address] Address [address] [place] [phone] Care Team Providers Care Underground Supervisor Name Role Phone Va Price Primary Care Physician [phone] Encounter [id number] Date(s): 07/02/23 - 07/02/[address] [place] [id number] [facility], [facility] [address] [place] [address] [phone] Encounter Diagnosis Body mass index [BMI] 38.0-38.9, adult(Discharge Diagnosis) - 07/02/23 Lipid screening(Discharge Diagnosis) - 07/02/23 Prediabetes(Discharge Diagnosis) - 07/02/23 Hypothyroidism in adult(Discharge Diagnosis) - 07/02/23 Physical exam(Discharge Diagnosis) - 07/02/23 Elevated LFTs(Discharge Diagnosis) - 07/02/23 Need for hepatitis B screening test(Discharge Diagnosis) - 07/02/23 Seizure(Discharge Diagnosis) - 07/02/23 Microcephalus(Discharge Diagnosis) - 07/02/23 Autistic disorder(Discharge Diagnosis) - 07/02/23 Discharge Disposition: Home or Self Care Attending Physician: Justyna Martin DO, Mariana Annette Referring Physician: Justyna Martin DO, Mariana Annette Allergies, Adverse Reactions, Alerts Substance Reaction Severity Status Zithromax Active Versed turned blue Active Dust Active Pollen Active eggs 1 Mild allergy to raw egg whites. Active tree nuts 2 Anaphylaxis Active peanuts 3 Anaphylaxis Active Bee stings hornets yellow jackets. was tested Active walnuts 4 Anaphylaxis Active oranges eosinophil esophagitis Activ e 1Does not have any problems getting vaccines/flu shots. 2"All nuts", as per patient's chart. 3"All nuts", as per patient's chart. 4"All nuts", as per patient's chart. Assessment and Plan Extracted from: Title:Office Visit Note Author:Justyna Martin DO, Mariana Annette Date:07/02/23 1.Physical exam - encouraged diet and exercise regimen appropriate for patient age and condition - routine dental and eye care per continuity - vaccinations reviewed and up to date per EHR -screening labs reviewed 2.Elevated LFTs STATUS:Chronic DATA:Labs reviewed. GOAL:Maintain stability. PLAN:CMP ordered, suspect fatty liver although lipid panel is normal or side effect from lamictal. May need RUQ US if LFTs continue to increase. 3.Need for hepatitis B screening test Ordered per request of caregiver. 4.Seizure STATUS:Chronic stable. DATA:Labs reviewed. GOAL:Maintain stability. PLAN:no recent seizures. . 5.Microcephalus STATUS:Chronic stable. DATA:Labs reviewed. GOAL:Maintain stability. PLAN:cont current monitoring . 6.Autistic disorder STATUS:Chronic stable. DATA:Labs reviewed. GOAL:Maintain stability. PLAN:cont current monitoring Immunizations Given and Recorded Vaccine Date Status Refusal Reason influenza virus vaccine, inactivated 04/22/23 Tao rded influenza virus vaccine, inactivated 04/19/22 Tao rded influenza virus vaccine, inactivated 04/24/21 Tao rded influenza virus vaccine, inactivated 04/24/20 Tao rded influenza virus vaccine, inactivated 04/16/19 Give n influenza virus vaccine, inactivated 04/13/18 Tao rded influenza virus vaccine, inactivated 03/20/17 Give n influenza virus vaccine, inactivated 05/01/15 Give n influenza virus vaccine, inactivated 04/12/14 Give n SARS COVID Vaccine Unspecified 04/22/23 Recorded SARS-CoV-2 mRNA (Pfizer 12+) bivalent 04/19/22 Rec orded SARS-CoV-2 (COVID-19) mRNA-1273 vaccine 1 06/01/21 Recorded SARS-CoV-2 (COVID-19) mRNA BNT-162b2 vax 2 09/26/20 Recorded SARS-CoV-2 (COVID-19) mRNA BNT-162b2 vax 09/05/20 Recorded tetanus/diphtheria/pertuss, acel (Tdap) 09/22/18 G iven tetanus/diphtheria/pertuss, acel (Tdap) 03/04/08 R ecorded meningococcal conjugate vaccine 01/24/12 Given meningococcal conjugate vaccine 07/02/07 Recorded influenza virus vaccine, H1N1 3 06/17/09 Recorded hepatitis A pediatric vaccine 06/17/08 Recorded hepatitis A pediatric vaccine 07/02/07 Recorded varicella virus vaccine 02/09/08 Recorded varicella virus vaccine 05/01/06 Recorded varicella virus vaccine 03/12/96 Recorded poliovirus vaccine, inactivated 03/05/99 Recorded poliovirus vaccine, inactivated 95 Recorded poliovirus vaccine, inactivated 95 Recorded poliovirus vaccine, inactivated 95 Recorded measles/mumps/rubella virus vaccine 03/05/99 Recor ded measles/mumps/rubella virus vaccine 03/12/96 Recor ded hepatitis B pediatric vaccine 95 Recorded hepatitis B pediatric vaccine 95 Recorded hepatitis B pediatric vaccine 95 Recorded 1Result Comment: 2022-04-30: Historical information-source unspecified 2Result Comment: 2022-04-30: Historical information-source unspecified 3Result Comment: 2022-04-30: Historical information-source unspecified Medications ARIPiprazole 10 mg oral tablet Start: 05/20/23 13:12:00 EST, 1 tab, PO, Daily Start Date: 05/20/23 Status: Ordered clindamycin 1% topical lotion Start: 04/30/21 12:05:00 EDT, 1 appl, topical, bid, Disp# 60 mL, Refills: 10, apply to axillae and chest folds, Pharmacy: [address] Start Date: 04/30/21 Status: Ordered EpiPen 2-Ramsey 0.3 mg injectable kit Start: 11/12/22 15:29:00 EDT, 0.3 mg =, IM, ONCE, Disp# 1 each, Refills: 1, PRN: as needed for anaphylaxis, Pharmacy: [facility] Start Date: 11/12/22 Status: Ordered glycopyrrolate 2 mg oral tablet Start: 06/23/23 17:06:00 EST, 1 tab, PO, tid, Disp# 93 tab, Refills: 1, Pharmacy: [facility] Start Date: 06/23/23 Status: Ordered ketoconazole 2% topical cream Start: 11/12/22 15:29:00 EDT, 1 appl, topical, bid, Disp# 30 g, Refills: 5, to AA under arms, Pharmacy: [facility] Start Date: 11/12/22 Status: Ordered ketoconazole 2% topical shampoo Start: 11/12/22 15:29:00 EDT, See Instructions, Disp# 120 mL, Refills: 3, Use as a body wash up to daily., Pharmacy: [facility] Start Date: 11/12/22 Status: Ordered lamoTRIgine 25 mg oral tablet, chewable dispersible Start: 06/23/23 17:06:00 EST, 1 tab, PO, bid, Disp# 62 tab, Refills: 1, Pharmacy: [facility] Start Date: 06/23/23 Status: Ordered melatonin 5 mg oral capsule Start: 11/20/22 9:35:00 EDT, 10 mg =, PO, qhs, Disp# 90 cap, Refills: 3, Pharmacy: [facility] Start Date: 11/20/22 Status: Ordered metFORMIN 500 mg oral tablet Start: 11/20/22 9:34:00 EDT, 1 tab, PO, Daily, Disp# 90 tab, Refills: 3, PC noon meal, Pharmacy: [facility] Start Date: 11/20/22 Status: Ordered Nyamyc 100,000 units/g topical powder Start: 11/12/22 15:29:00 EDT, See Instructions, Disp# 60 g, Refills: 2, apply to affected area two to three times a day, Pharmacy: [facility] Start Date: 11/12/22 Status: Ordered omeprazole Start: 03/26/21 15:54:00 EDT, 20 mg =, bid Start Date: 03/26/21 Status: Ordered ZyrTEC 10 mg oral tablet Start: 11/20/22 9:36:00 EDT, 1 tab, PO, Daily, Disp# 90 tab, Refills: 3, seasonal allergies, Pharmacy: [facility] Start Date: 11/20/22 Stop Date: 11/15/23 Status: Ordered Mental Status 07/02/23 Barriers to Learning one year Cognitive deficit Mandatory Health Literacy Documentation Yes Health Literacy Communication Barriers N ever Primary Language Spanish Problem List Condition Confirmation Course Effective Dates Status H ealth Status Informant Aggressive behavior Confirmed Active Multiple food allergies Confirmed Active Ataxia Confirmed Active Autistic disorder Confirmed Active Multiple nevi Confirmed Active Skin candidiasis Confirmed Active Delay in sexual development AND/OR puberty Confirmed Active Difficulty walking Confirmed Active Impaired glucose metabolism Confirmed Active Dyssomnia Confirmed Active Eosinophilic esophagitis Confirmed Active Gastroesophageal reflux disease Confirmed Active Global developmental delay Confirmed Active Hx of candidiasis of skin and nails Confirmed Active Hypogonadotropic hypogonadism Confirmed Active Microcephalus Confirmed Active Obesity Confirmed Active PE (physical exam), annual Confirmed Active Medication management Confirmed Active Sebaceous cyst Confirmed Active Venous ulcer of left lower extremity with varicose veins 1 Confirmed Active Complicated varicose veins Confirmed Active Weight disorder Confirmed Active 1listed among the diagnosis on [facility] in-patient note dated 12/15/20 Diagnosis Diagnosis Type Effective Dates Health Status Clinical Service Informant Elevated LFTs Discharge Diagnosis 07/02/23 Non-Specified Hypothyroidism in adult Discharge Diagnosis 07/02/23 Non-Specified Need for hepatitis B screening test Discharge Diagnosis 07/02/23 Non-Specified Lipid screening Discharge Diagnosis 07/02/23 Non-Specified Prediabetes Discharge Diagnosis 07/02/23 Non-Specified Body mass index [BMI] 38.0-38.9, adult Discharge Diagnosis 07/02/23 Non-Specified Microcephalus Discharge Diagnosis 07/02/23 Autistic disorder Discharge Diagnosis 07/02/23 Physical exam Discharge Diagnosis 07/02/23 Seizure Discharge Diagnosis 07/02/23 Procedures Procedure Date Related Diagnosis Body Site Status Shave biopsy 1 12/18/22 Completed Endoscopy 2 07/29/[address] of abdomen and pelvis 3 03/26/21 Completed RFA BLE GSV 12/15/20 Completed US - Ultrasound 4 09/07/19 Complet ed US scan of scrotum 5 05/21/17 Comp leted Upper GI endoscopy 6 05/2009 Comp leted Tonsillectomy 2001 Completed Adenoidectomy 2000 Completed Myringotomy and insertion of T tube 2000 Completed Myringotomy and insertion of T tube 1998 Completed 1right upper back 2Upper GI Endoscopy: Esophageal mucosal changes secondary to eosinophilic esophagitis, biopsied. Gastritis, biopsied. Normal examined duodenum. 3CT ABD PELVIS ORAL AND IV CON No acute intra abdominal process. Nodilated loops of bowel. Appendix not well seen. Hepatic steatosis. Redemonstration of retroperitoneal and right lower quadrant lymphadenopathy which was also seen during prior study in 2017 and not significantly changed. Eval is slightly limited due to pt body habitus. 4US SCROTUM IMPRESSION: Normal testicular ulstrasound 5Normal testicular ultrasound. Bilateral hydroceles. Right Testis hydrocele measuring 8 x 4 cm. Left testis hydrocele measuring 8 x 5cm. 6"With biopsy under anesthesia", as per patient's chart. Vital Signs Most recent to oldest [Reference Range]: 1 Height 182.2 cm (07/02/23 10:40 AM) Patient Weight 127.7 kg (07/02/23 10:40 AM) Body Mass Index 38.47 kg/m2 (07/02/23 10:40 AM) Temperature [36.5-37.9 DegC] 36.4 DegC *LOW* (07/02/23 10:40 AM) Heart Rate 63 bpm (07/02/23 10:40 AM) Respiratory Rate 16 br/min (07/02/23 10:40 AM) Blood Pressure 118/84mmHg (07/02/23 10:40 AM) Social History Social History Type Response Smoking Status Never smoked cigaret marvel Sex Male FCM Outpt Note * Justyna Martin DO, Mariana Annette: PERFORM Event Display: FCM Outpt Note Authored Date: Chief Complaint cpe History of Present Illness No acute complaints at this time. He lives at the [facility], doing well there, gets along with the residents and staff. Trying to eat healthier in an effort to lose weight. Has been working at [employer] 14 hrs per week. No hospitalizations in the last 12 months nor severe acute injuries not accounted for in chart. Routine dental care without complaint Routine eye care without issue presently,+veglasses/contacts Vaccination schedule reviewed in EHR Histories updated and reviewed with patient with changes reflected. Feeling safe at home and in relationships without concern. 10 system ROS completed and negative except as noted above. Physical Exam Vitals & Measurements T:36.4C HR:63(Monitored) RR:16 BP:118/84 SpO2:99% HT:182.2cm WT:127.700kg(Dosing) WT:127.7kg BMI:38.47 PHQ2 Data(Data Documented on:07/02/2023 10:40) Emotional health assessment NEGATIVE General: _Alert and oriented, No acute distress HEENT: _ Normocephalic, TM clear, Nl gross hearing, moist oral mucosa _ Cardiovascular: _Normal rate, Regular rhythm, No murmur, No gallop. Respiratory: _Lungs are clear to auscultation, Respirations are non-labored, Breath sounds are equal Gastrointestinal: _Soft, Non-tender, Non-distended, Normal bowel sounds. Musculoskeletal: _Normal range of motion,normal strength.Neurologic:Normal sensory, Normal motor function, CN II-XII grossly intact. Integumentary: _Warm, Dry, [place]. Psych: Mood-affect congruence. Reports no SI/HI. Speech is of normal pace and content Assessment/Plan 1.Physical exam - encouraged diet and exercise regimen appropriate for patient age and condition - routine dental and eye care per continuity -vaccinations reviewed and up to date per EHR -screening labs reviewed 2.Elevated LFTs STATUS:Chronic DATA:Labs reviewed. GOAL:Maintain stability. PLAN:CMP ordered, suspect fatty liver although lipid panel is normal or side effect from lamictal. May need RUQ US if LFTs continue to increase. 3.Need for hepatitis B screening test Ordered per request of caregiver. 4.Seizure STATUS:Chronic stable. DATA:Labs reviewed. GOAL:Maintain stability. PLAN:no recent seizures. . 5.Microcephalus STATUS:Chronic stable. DATA:Labs reviewed. GOAL:Maintain stability. PLAN:cont current monitoring . 6.Autistic disorder STATUS:Chronic stable. DATA:Labs reviewed. GOAL:Maintain stability. PLAN:cont current monitoring Problem List/Past Medical History Ongoing Aggressive behavior Ataxia Autistic disorder Complicated varicose veins Delay in sexual development AND/OR puberty Developmental delay Difficulty walking Dyssomnia Eosinophilic esophagitis Gastroesophageal reflux disease Global developmental delay Gynecomastia Hx of candidiasis of skin and nails Hypogonadotropic hypogonadism Impaired glucose metabolism Medication management Microcephalus Multiple food allergies Multiple nevi Obesity PE (physical exam), annual Sebaceous cyst Seizure Skin candidiasis Venous bleed Venous bleed Venous ulcer of left lower extremity with varicose veins Weight disorder Historical Elevated liver enzymes Hydrocephalus Hypotonia Incontinence Incontinent Procedure/Surgical History Shave biopsy (12/18/2022)Endoscopy (07/29/2022)CT of abdomen and pelvis (03/26/2021)RFABLE GSV (12/15/2020)US - Ultrasound (09/07/2019)US scan of scrotum (05/21/2017)Upper GI endoscopy (05/2009)Tonsillectomy (2001)Myringotomy and insertion of T tube (2000)Adenoidectomy (2000)Myringotomy and insertion of T tube (1998) Medications ARIPiprazole(ARIPiprazole 10 mg oral tablet), 10 mg= 1 tab, PO, Daily cetirizine(ZyrTEC 10 mg oral tablet), 10 mg= 1 tab, PO, Daily, 3 refills clindamycin topical(clindamycin 1% topical lotion), 1 appl, topical, bid, 10 refills EPINEPHrine(EpiPen 2-Ramsey 0.3 mg injectable kit), 0.3 mg, IM, ONCE, PRN, 1 refills glycopyrrolate(glycopyrrolate 2 mg oral tablet), 1 tab, PO, tid ketoconazole topical(ketoconazole 2% topical shampoo), See Instructions, 3 refills ketoconazole topical(ketoconazole 2% topical cream), 1 appl, topical, bid, 5 refills lamoTRIgine(lamoTRIgine 25 mg oral tablet, chewable dispersible), 1 tab, PO, bid melatonin(melatonin 5 mg oral capsule), 10 mg, PO, qhs, 3 refills metFORMIN(metFORMIN 500 mg oral tablet), 500 mg= 1 tab, PO, Daily, 3 refills nystatin topical(Nyamyc 100,000 units/g topical powder), See Instructions, 2 refills omeprazole, 20 mg, bid Allergies Bee stingshornets yellow jackets. was tested Dust Pollen Versedturned blue Zithromax eggsMild allergy to raw egg whites. orangeseosinophil esophagitis peanutsAnaphylaxis tree nutsAnaphylaxis walnutsAnaphylaxis Social History Smoking Status Never smoked cigarettes Alcohol Concerns about alcohol use in household:No - Comments: About 1 drink / month Employment/School Description:Goes to [employer] in [place] Exercise Times per week:5-6 times/week Home/Environment Lives with:Mother, and brother Nutrition/Health Type of diet:Regular Substance Abuse - Denies Substance Abuse Concerns about substance abuse in household:No Tobacco - Denies Tobacco Use Use:Never smoker Concerns about tobacco use in household:No Family History Aortic aneurysm..: MGM. Arthritis: PGM. Breast cancer: MGM. Cardiovascular disease: MGM. Gout: PGF. High Blood Pressure: MGF and MGM. Hyperlipidemia..: MGF. Prostate cancer..: PGF. Rheumatoid arteritis: MGM. Skin cancer: MGF. Thyroid disease: PGM. Health Status Family Member(s) Family Member(s) Relationship: Father, Age: Unknown, Cause: cardiac arrest Immunizations Vaccine Date Status influenza virus vaccine, inactivated 04/22/2023 Recorded SARS COVID Vaccine Unspecified 04/22/2023 Recorded influenza virus vaccine, inactivated 04/19/2022 Recorded SARS-CoV-2 mRNA (Pfizer 12+) bivalent 04/19/2022 Recorded SARS-CoV-2 (COVID-19) mRNA-1273 vaccine 06/01/2021 Recorded Comments : 2022-04-30: Historical information-source unspecified influenza virus vaccine, inactivated 04/24/2021 Recorded SARS-CoV-2 (COVID-19) mRNA BNT-162b2 vax 09/26/2020 Recorded Comments : 2022-04-30: Historical information-source unspecified SARS-CoV-2 (COVID-19) mRNA BNT-162b2 vax 09/05/2020 Recorded influenza virus vaccine, inactivated 04/24/2020 Recorded influenza virus vaccine, inactivated 04/16/2019 Given tetanus/diphtheria/pertuss, acel (Tdap) 09/22/2018 Given influenza virus vaccine, inactivated 04/13/2018 Recorded influenza virus vaccine, inactivated 03/20/2017 Given influenza virus vaccine, inactivated 05/01/2015 Given influenza virus vaccine, inactivated 04/12/2014 Given meningococcal conjugate vaccine 01/24/2012 Given influenza virus vaccine, H1N1 06/17/2009 Recorded Comments : 2022-04-30: Historical information-source unspecified hepatitis A pediatric vaccine 06/17/2008 Recorded tetanus/diphtheria/pertuss, acel (Tdap) 03/04/2008 Recorded varicella virus vaccine 02/09/2008 Recorded hepatitis A pediatric vaccine 07/02/2007 Recorded meningococcal conjugate vaccine 07/02/2007 Recorded varicella virus vaccine 05/01/2006 Recorded poliovirus vaccine, inactivated 03/05/1999 Recorded measles/mumps/rubella virus vaccine 03/05/1999 Recorded measles/mumps/rubella virus vaccine 03/12/1996 Recorded varicella virus vaccine 03/12/1996 Recorded hepatitis B pediatric vaccine 1995 Recorded poliovirus vaccine, inactivated 1995 Recorded poliovirus vaccine, inactivated 1995 Recorded poliovirus vaccine, inactivated 1995 Recorded hepatitis B pediatric vaccine 1995 Recorded hepatitis B pediatric vaccine 1995 Recorded Recommendations Health Maintenance Pending(in the next year) Due Adult Social Determinants of Health Screening due07/02/23Unknown Frequency Due In Future Adult Influenza Vaccine not due until01/12/24and every 1year Satisfied(in the past 1 year) Satisfied Adult Influenza Vaccine on04/22/23.Satisfied by MJ Adkins, Sara Body Mass Index on07/02/23.Satisfied by [facility] Angela Lipid Screening on01/02/23.Satisfied by Contributor_system, [employer] Electronic Signature on File Electronically Reviewed/Signed by: Luzmaria Martin DO Author Signature Dt/Tm:07/02/2023 12:10 PM Department of Family Medicine MAF Patient Care team information Care Team Personnel Name: DO Price Kristen M Position: Physician - Family Med Member Role: Primary Care Provider Address: Address: [address] Name: MAIK Johnson Lynn Position: Physician Ncr Operator Exempt - Vasc Surg Member Role: Lifetime Relationship Address: Address: [address] [place] [address] Care Team Related Persons Name: ZOË BOWLING Address: home [address] [facility] [phone] Name: RENETTA MENDES Address: [facility] Address: home [address] [place], [place] [phone]
--- OUTSIDE RECORDS SUMMARY | 2023-11-17 02:08 | External Medical Summary | Continuity of Care Document ---
Author Name Unknown Organization [facility] [address] Address [address] [place], [place] [id number] Care Team Providers Care Lathe Machinist Name Role Phone Va Price Primary Care Physician [phone] [id number] Date(s): 05/20/23 - 05/20/[address] [facility] [address], [address] [place] [address] [phone] Encounter Diagnosis Varicose veins of left lower extremity with pain(Discharge Diagnosis) - 05/20/23 Discharge Disposition: Home or Self Care Attending Physician: MD Dawn Eugene J Referring Physician: Justyna Martin DO, Mariana Annette [...] chart. 4"All nuts", as per patient's chart. Immunizations Given and Recorded Vaccine Date Status [...] apply to axillae and chest folds, Pharmacy: [facility] [employer] Start Date: 04/30/21 Status: Ordered EpiPen 2-Ramsey 0.3 mg injectable kit Start: 11/12/22 15:29:00 EDT, 0.3 mg =, IM, ONCE, Disp# 1 each, Refills: 1, PRN: as needed for anaphylaxis, Pharmacy: [facility] Start Date: 11/12/22 Status: Ordered glycopyrrolate 2 mg oral tablet Start: 04/21/23 15:54:00 EDT, 1 tab, PO, tid, Disp# 93 tab, Refills: 1, Pharmacy: [facility] Start Date: 04/21/23 Status: Ordered ketoconazole 2% topical cream Start: 11/12/22 15:29:00 EDT, 1 appl, topical, bid, Disp# 30 g, Refills: 5, to AA under arms, Pharmacy: [facility] Start Date: 11/12/22 Status: Ordered ketoconazole 2% topical shampoo Start: 11/12/22 15:29:00 EDT, See Instructions, Disp# 120 mL, Refills: 3, Use as a body wash up to daily., Pharmacy: [facility] Start Date: 11/12/22 Status: Ordered lamoTRIgine 25 mg oral tablet, chewable dispersible Start: 04/21/23 15:54:00 EDT, 1 tab, PO, bid, Disp# 62 tab, Refills: 1, Pharmacy: [facility] Start Date: 04/21/23 Status: Ordered melatonin 5 mg oral capsule Start: 11/20/22 9:35:00 EDT, 10 mg =, PO, qhs, Disp# 90 cap, Refills: 3, Pharmacy: [facility] Start Date: 11/20/22 Status: Ordered metFORMIN 500 mg oral tablet Start: 11/20/22 9:34:00 EDT, 1 tab, PO, Daily, Disp# 90 tab, Refills: 3, PC noon meal, Pharmacy: [facility] Start Date: 11/20/22 Status: Ordered Nyamyc 100,000 units/g topical powder Start: 11/12/22 15:29:00 EDT, See Instructions, Disp# 60 g, Refills: 2, apply to affected area two to three times a day, Pharmacy: [facility] Start Date: 11/12/22 Status: Ordered omeprazole Start: 03/26/21 15:54:00 EDT, 20 mg =, bid Start Date: 03/26/21 Status: Ordered ZyrTEC 10 mg oral tablet Start: 11/20/22 9:36:00 EDT, 1 tab, PO, Daily, Disp# 90 tab, Refills: 3, seasonal allergies, Pharmacy: [facility] Start Date: 11/20/22 Stop Date: 11/15/23 Status: Ordered Mental Status 05/20/23 Barriers to Learning one year Cognitive deficit Mandatory Health Literacy Documentation Yes Health Literacy Communication Barriers N ever Primary Language Finnish Problem List Condition Confirmation Course Effective Dates [...] candidiasis of skin and nails Confirmed Active Hydrocephalus Confirmed Active Hypogonadotropic hypogonadism Confirmed Active Microcephalus Confirmed Active Obesity Confirmed Active PE (physical exam), annual Confirmed Active Medication management Confirmed Active Sebaceous cyst Confirmed Active Venous ulcer of left lower extremity with varicose veins 1 Confirmed Active Complicated varicose veins Confirmed Active Weight disorder Confirmed Active 1listed among the diagnosis on [facility] in-patient note dated 12/15/20 Diagnosis Diagnosis Type Effective Dates Health Status Cl inical Service Informant Varicose veins of left lower extremity with pain Discharge Diagnosis 05/20/23 Procedures Procedure Date Related Diagnosis Body Site [...] Most recent to oldest [Reference Range]: 1 Heart Rate 100 bpm (05/20/23 1:17 PM) Blood Pressure 106/72mmHg (05/20/23 1:17 PM) Cuff Pulse Pressure 34 mmHg (05/20/23 1:17 PM) BP Location # 1 Left Arm (05/20/23 1:17 PM) Social History Social History Type Response Smoking Status Never smoked cigaret marvel Sex Male Patient Care team information Care Team Personnel Name: DO Price Kristen M Position: Physician - Family Med Member Role: Primary Care Provider Address: Address: [address] [place] [address] Name: MAIK Johnson Lynn Position: Physician Retail Support Specialist Exempt - Vasc Surg Member Role: Lifetime Relationship Address: Address: [address] [place] [address] Care Team Related Persons Name: ZOË BOWLING Address: home [address] [facility], [phone] Name: RENETTA MENDES Address: [facility] Address: home [address] [facility] [place]AHI MCCARTHY [id number]
--- NOTE | 2023-11-17 07:47 | Hospitalist Progress Note ---
Date of Service November 17, 2023 Assessment & Plan (1) Sinus bradycardia: Plan: -Asymptomatic since admission -Possible component of autonomic dysfunction - not know to be a part of Dandy- Walker syndrome but reportedly he has had other autonomic dysfunction in the pa st Atropine 0.5mg IV PRN for HR < 30 or symptomatic with HR < 50 Troponin x2 negative TTE pending read Consult cardiology: -Consideration for pacemaker placement -Will need outpatient monitor -f/u with cardiology outpatient to discuss instrument sterilizer management (2) Eosinophilic esophagitis: (3) Symptomatic bradycardia: (4) Dandy-Walker syndrome: Admission and Anticipated Discharge Date Admission Date: November 15, 2023 Santy Hamm 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 His HR overnight was in the 30-40s, with one 15-minute episode of tachycardia (120s) in the state auditor hours. His HR has since remained in the 50-80s. Of note, fam hx significant for father with early, sudden cardiac at the age of 36. Pt's mother reports father had similar sx before . Review of Systems Review of Systems: reviewed, per HPI Physical Exam Physical Exam: Constitutional: No acute distress. Resp: Breath sounds clear and equal bilaterally. No wheezing, rales, rhonchi, crackles appreciated. Cardio: RRR. No murmurs, rubs, gallops noted. Extremities: No cyanosis or LE edema. Neuro: Alert and oriented x3. Speech and cognitional normal. Results & Data Results & Data Vital Signs (Past 12 Hours) Vital Signs Temp Pulse Pulse Resp BP Pulse Ox O2 Del Method 11/17/23 07:37 36.8 C 76 19 148/74 H 94 Room Air 11/17/23 03:18 36.6 C 62 16 120/74 95 Room Air 11/16/23 22:44 36.6 C 62 16 108/72 95 Room Air 11/16/23 22:00 57 L Laboratory Results Abnormal Labs 11/15/23 11/15/23 11/16/23 15:02 15:04 06:08 RDW Coeff of Chasidy 14.6 H 14.8 H [place] # (Auto) 0.83 H 0.68 H VBG pH 7.35 L VBG pCO2 55 H Glucose 104 H ALT 64 H
--- NOTE | 2023-11-17 10:02 | Cardiology Progress Note ---
Date of Service November 17, 2023 Assessment & Plan (1) Symptomatic bradycardia: Plan Impression: 1. Possible tachy-ashlee, sinus node dysfunction 2. Dandy-Walker syndrome 3. Normal echo As discussed with Dr. Pyle, it's possible Mr. Navarro would need a pacemaker for symptomatic bradycardic episodes while awake, but I would like to do longer term monitoring first. He will be set up for event monitor through our clinic. His mother notes that he does not describe pain well. It's possible that his low heart rate could be vagally mediated but I think this is less likely as his only complaint was fatigue at that the time of his bradycardia. He denies any illness or nausea or pain. His tick born illness panel is pending but Lyme and anaplasmosis peripheral smear were negative. Electrolytes were normal. From a cardiac standpoint, he can be discharged today and we will see him in the clinic in the next couple of days to place a monitor. Admission and Anticipated Discharge Date Admission Date: November 15, 2023 Subjective Mr. Navarro appears comfortable. His mother is with him at bedside. He describes that prior to the hospital he was feeling very fatigued and his coworkers noticed he looked unwell. When he got home where he lives at the [facility], a caregiver took a pulse ox which was in the 40s. Upon arrival to the ED his heart rate was 38 bpm. This morning his heart rate was in the 120s for about 15 minutes while he was at rest in sinus tach. He was in SB with sleep but otherwise no significant bradycardia while awake since the day he presented. He did not feel the rapid beats.. He denies any chest pain or palpitations. No sob. He has not had any syncope in years. His mother notes he has had 3 episodes of syncope total in his life. Review of Systems Review of Systems: All systems reviewed & are unremarkable except as noted in HPI & below Physical Exam Constitutional: WD/WN, vitals as above Respiratory: normal respiratory effort, lungs clear to auscultation Cardiovascular: RRR, no murmur, no edema Skin: no rashes, warm and dry Neurologic: moves all extremities and awake Psychiatric: A+Ox3, euthymic affect Results & Data Vital Signs (Past 12 Hours) Vital Signs Temp Pulse Pulse Resp BP Pulse Ox O2 Del Method 11/17/23 07:37 36.8 C 76 19 148/74 H 94 Room Air 11/17/23 03:18 36.6 C 62 16 120/74 95 Room Air 11/16/23 22:44 36.6 C 62 16 108/72 95 Room Air 11/16/23 22:00 57 L
--- NOTE | 2023-11-17 11:23 | Discharge Summary ---
Date of Service November 17, 2023 Admission HPI Per Admitting Provider Hansel Paz is a 28-year-old male with Dandy-Walker syndrome who presents to the ER with generalized fatigue. He reports just "feeling off" when he went to work today. Unable to really expand on this feeling. Careworker mentioned the patient was "nodding off". No fall or trauma. He denies any chest pain, dizziness, shortness of breath, headache, neck stiffness, fever, chills, respiratory, gastrointestinal or urinary symptoms. He denies missing any medications. In the ER he was noticed to have a heart rate in the 30s and was given a total of 1 mg of atropine and he is feeling improved following this. Admission Exam Per Admitting Provider Constitutional: no acute distress Eyes: PERRL, conjunctivae normal, anicteric sclerae ENMT: external ear and nose normal, oropharynx normal Respiratory: normal respiratory effort, lungs clear to auscultation Cardiovascular: RRR, no murmur, no edema HR decreased back to 40s after visiting rest room but patient was asymptomatic with this heart rate Gastrointestinal (Abdomen): normal bowel sounds, soft, nontender, no hepatosplenomegaly Musculoskeletal: no cyanosis or clubbing, extremities motor strength 5/5 Skin: no rashes, warm and dry Principal Diagnosis Symptomatic Bradycardia Discharge Exam Constitutional WD/WN, vitals as above Respiratory normal respiratory effort, lungs clear to auscultation Cardiovascular RRR, no murmur, no edema Gastrointestinal (Abdomen) normal bowel sounds, soft, nontender, no hepatosplenomegaly Skin No rashes, warm and dry Neurologic moves all extremities and awake Discharge Data Allergies Allergy/AdvReac Type Severity Reaction Status Date / Time azithromycin Allergy Severe severe Verified 12/11/22 12:55 [From Zithromax Z-Ramsey] hives - Anaphylaxis cashew nut Allergy Severe all Verified 12/11/22 12:55 nuts Anaphylaxis peanut Allergy Severe ANAPHYLAXIS Verified 12/11/22 12:55 sesame seed Allergy Severe Anaphylaxis Verified 12/11/22 12:55 egg Allergy Intermediate Hives Verified 12/11/22 12:55 midazolam [From Versed] Allergy Intermediate respiratory Verified 12/11/22 12:55 failure, syncope, weakness orange Allergy Intermediate EOSINOPHILLIC Verified 12/11/22 12:55 ESOPHAGITIS peas Allergy Intermediate EOSINOPHILLIC Verified 11/15/23 19:53 ESOPHAGITIS Consultations 11/15/23 15:56 ED Decision to Admit Stat 11/16/23 06:01 Consult Cardiology Routine Ordered Studies 11/15/23 14:50 CT head/brain wo con Stat Chest X-Ray 11/15/23 14:45 SINGLE VIEW CHEST CLINICAL HISTORY: Atypical chest pain FINDINGS: An AP, portable, upright chest radiograph is compared to study dated 12/13/2020. The cardiomediastinal silhouette is unremarkable. There is prominence of the pulmonary vasculature and coarsening of interstitial. An accessory azygos fissure is incidentally noted. There is mild bibasilar atelectasis. The lungs and pleural spaces are otherwise clear. No pneumothorax is seen. The bony thorax is grossly intact. IMPRESSION: 1. There is prominence of the pulmonary vasculature and coarsening of the interstitium. This may be artifactual. Correlate clinically for evidence of fluid overload/mild congestive change versus a mild pneumonitis. 2. No airspace consolidation or pleural effusion is identified. ACT 112: Negative or not required by law. Electronically signed by: Harris Puga M.D. 11/15/2023 3:[address] 11/15/23 14:50 CT SCAN OF THE BRAIN WITHOUT IV CONTRAST CLINICAL HISTORY: Change in mental status. COMPARISON STUDY: CT of the brain dated 06/21/2013. MRI of the brain dated 07/05/2013 TECHNIQUE: Unenhanced axial CT scan of the brain is performed from the vertex to the skull base. A dose lowering technique was utilized adhering to the principles of ALARA. CT DOSE: 766.29 mGy.cm FINDINGS: Brain parenchyma: The brain parenchyma is normal in appearance. There is no hemorrhage, mass effect, or evidence of acute territorial ischemia by CT criteria. A 7 mm focus of CSF attenuation in the right parietal white matter on image #19 has been present dating back to 2012 and is of doubtful significance, possibly representing a perivascular space. Perrin-white matter differentiation is preserved. No extra-axial fluid collection is seen. Ventricles, sulci, cisterns: Normal in configuration. 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 Cavum septum pellucidum is incidentally noted.. Intracranial vasculature: The visualized intracranial vasculature at the skull base is normal in appearance. Calvarium: Unremarkable. Sinuses and mastoids: The visualized paranasal sinuses are clear. The mastoid air cells are well pneumatized. Orbits: The bony orbits are grossly intact. IMPRESSION: No acute intracranial abnormality. ACT 112: Negative or not required by law. Electronically signed by: Harris Puga M.D. 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 He has remained asymptomatic Possible component of autonomic dysfunction - not know to be a part of Dandy- Walker syndrome but reportedly he has had other autonomic dysfunction in the past Troponin x2 negative TTE: no acute findings, Left ventricular systolic function is normal. Lyme and anaplasmosis peripheral smear were negative. 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 Total Time Total Time Spent Total Time Spent (In Minutes): <30 Discharge Plan Discharge Items Patient Disposition: Home - Self-Care Reason For Visit: SYMPTOMATIC SINUS BRADYCARDIA Discharge Diagnosis: Bradycardia Activity: Per Instructions section Non-emergency contact: Primary Care Provider Call non-emergency contact if: you have any medication questions, your symptoms worsen and your temperature is above 101 Follow-up/Referrals: Danny Wesley DO [Physician] - ([facility] cardiology will reach out to you to schedule. ) Dayanara Lombardi CRNP [Nurse Practitioner] - 11/19/23 9:25 am (with Minnie Hernandez NP.) Diet: Regular Addtl Attending Provider Instructions: You were admitted due to symptomatic bradycardia. [facility] Cardiology group saw you while you were admitted, they recommended a longer outpatient heart monitoring. We have requested a close follow up with [facility] Cardiology. They will contact you early this week for the heart monitor. Ark instructions: HR below of 40s: Go to emergency room or call PCP if Christopher is symptomatic (Feeling weak, fatigue, dizziness, lightheadedness, fainting, shortness of breath or chest pain) - If patient is not symptomatic, rest for 5 minutes, if HR does not return to baseline, call his PCP or go to the ER Follow-up appointments: Make a follow-up appointment with your PCP within the next week. It is very important that you follow up with them shortly after discharge from the hospital. Keep all your follow-up appointments as already scheduled. If you cannot make an appointment, notify your provider. Medications: Your medication list has been reviewed and reconciled upon discharge to ensure accuracy and continuity of care. An updated list of all your medications is included with your hospital discharge paperwork. Please review this list closely, and make note of any changes. Take your medications as instructed; do not skip a dose of your medicines. Make sure all of your doctors know every medicine you are taking (including ryli-znu-gtnbwiv medicines, vitamins, and supplements). Call your primary care provider before taking any new medicines (including mfyj-ilk-sfqznym medicines, vitamins, and supplements), because some of these may interact with your current medications, or may make your symptoms worse. Tell your primary care provider if you cannot afford your medications. CALL 911 OR GO TO THE EMERGENCY DEPARTMENT if you experience any of the following: Sudden, severe abdominal pain or nausea/vomiting Severe chest pain, or chest pain that radiates (moves) to your jaw or arm Sudden, severe shortness of breath or difficulty breathing Thank you for allowing us to participate in your care. Pending Studies at Discharge: No Stand-Alone Forms: [facility], Work/School Release, Smoking Cessation Medications and DC Order Prescriptions: Continued glycopyrrolate 2 mg tablet 2 mg PO TID Rx Instructions: 0800,1199,1999 cetirizine 10 mg tablet 10 mg PO HS metformin 500 mg tablet 500 mg PO DAILY Rx Instructions: Daily at noon epinephrine [EpiPen] 0.3 mg/0.3 mL Auto-Injector 0.3 mg IM Q3H PRN (Reason: ALLERGY REACTION) aripiprazole 10 mg tablet 10 mg PO HS lamotrigine 25 mg tablet, chewable dispersible 25 mg PO BID Rx Instructions: omeprazole 20 mg capsule,delayed release(DR/EC) 20 mg PO BID Rx Instructions: melatonin 5 mg tablet,disintegrating 10 mg PO HS Rx Instructions: 1999 Discharge Orders: Discharge Order (Routine); Ordered 11/17/23 Ordered By: Juliana Yang Admission Data Admit Date/Time: 11/15/23 16:37 Attending Provider: Toan Cochran Admit Provider: Bandar Forbes Primary Care Provider: Va Price Other Providers: Bandar Forbes; Shakir Pyle Other Interventions: Discharge Summary Assessment (RN) Last Done: 11/17/23 14:21 Supervising Physician Co-Signing Physician Notes I personally examined the patient and verified all wood points of history and exam, discussed case, and agree with decision making with Dr Chencho Yang feeling okay and would like to go home. Updated patient and mother extensively at the bedside. Cardiology input appreciated. Vitals noted, in general he is awake and alert pleasant no distress. HEENT normocephalic atraumatic mucous membranes moist. Breathing unlabored no accessory muscle use good effort. Skin without rashes pallor or icterus. Sinus bradycardia - unclear if it is symptomatic since reported 'funny' feeling spells is not new. -HR dropped to 40s. Now running high 50s to 60s. Some degree of sinus tachycardia with minimal exertionno true arrhythmias, but notable - echo reassuring, set up for outpatient cardiac monitoring - outpatient cardiology input facilitated Resident Activity Tracking Resident Involvement: Resident Care Provided Care Provided: Adult Hospital Medicine
--- NOTE | 2023-11-17 18:06 | Billing Data ---
Date of Service November 17, 2023 Coding Level of Care Code 67851 IN/OBS DISCH 30 MIN/LESS
[2023-11-19 14:09] LABS: Ehrlichia chaff DNA Bld Negative (Negative)
== END 2023-11-17 14:49 | disposition home or self-care (01) | DRG 309 ==
LOC: ED 13:58 → 2S 16:37 → SUATTDRO 16:37 → 2S 18:33